=== PATIENT | female | born 1955 | race Caucasian/White ===

== ENCOUNTER 2016-06-10 14:26 | Inpatient (IN) | payer OTHER ==
[~2016-06-10] VITALS: Ht 165.1 cm; Wt 48.5 kg
--- NOTE | 2016-06-10 18:07 | DIAGNOSTIC IMAGING REPORT ---
PROCEDURE: CT ABD/PELVIS WITH CONTRAST INDICATION: Lower abdominal pain. Vomiting. Elevated white blood count (16,100). Reported bilateral oophorectomy. TECHNIQUE: 110 ml of Isovue 300 were injected intravenously and axial images were obtained of the entire abdomen and pelvis with sagittal and coronal reformations. COMPARISON: None. FINDINGS: ABDOMEN: There are moderately dilated small bowel loops in the left lower abdomen / upper pelvis with rotation of the mesentery, and a small amount of mesenteric fluid. Bowel pattern is otherwise normal (appendix is not clearly identified, but no evidence of inflammatory process). There is a 6 mm gallstone near the neck of the gallbladder (incidental finding). Liver, spleen, pancreas, kidneys, and aorta are normal. PELVIS: Status post supracervical hysterectomy. Ovaries are not visualized (consistent with surgical history). IMPRESSION: 1. Moderate to high-grade mid to distal small bowel obstruction with rotation of the mesentery, and small amount of mesenteric fluid. Findings suggest internal hernia (versus adhesions). 2. There is a 6 mm gallstone (incidental finding). 3. Status post partial supracervical hysterectomy and probable oophorectomy. 4. Findings discussed with MED Romero. All CT scans at this facility use dose modulation, iterative reconstruction, and/or weight-based dosing when appropriate to reduce radiation dose to as low as reasonably achievable.
--- NOTE | 2016-06-10 18:30 | ED ORDER SUMMARY ---
..... Patient: NGOC MARTINO OrderSheet [facility] VisitID: [id number] [place] [address] 61y, F Registration Date/Time: 06/10/2016 ORDER SHEET Weight: 47.6 kg (stated) Allergies: No Known Drug Allergy GENERAL ORDERS: CT Abd/Pel w Cont (No) (pending) Urgent (16:41 06/10/2016 HBivens A.R.N.P.) (Ack 16:43 LTapper) (18:53 MCampbell) CBC w Diff Urgent (16:41 06/10/2016 HBivens A.R.N.P.) (Ack 16:43 LTapper) (16:47 LSullivan R.N.) CMP Urgent (16:41 06/10/2016 HBivens A.R.N.P.) (Ack 16:43 LTapper) (16:47 LSullivan R.N.) UA-Culture if indicated Urgent (16:41 06/10/2016 HBivens A.R.N.P.) (Ack 16:43 LTapper) (18:58 LSullivan R.N.) Amylase Urgent (16:41 06/10/2016 HBivens A.R.N.P.) (Ack 16:43 LTapper) (16:47 LSullivan R.N.) Lipase Urgent (16:41 06/10/2016 HBivens A.R.N.P.) (Ack 16:43 LTapper) (16:47 LSullivan R.N.) NG Tube (18:29 06/10/2016 HBivens A.R.N.P.) (19:32 LSullivan R.N.) MEDICATION ORDERS: IV FLUIDS: IV NS with Normal Saline 1 Liter: initial bolus none -, then 1000 mL/hr for X1 (NOW) (15:07 06/10/2016 LSullivan R.N. per protocol) (15:09 LSullivan R.N.) Ondansetron IV 4 mg (NOW) (15:08 06/10/2016 LSullivan R.N. per protocol) (15:09 LSullivan R.N.) Toradol IV 30 mg (NOW) (16:41 06/10/2016 HBivens A.R.N.P.) (16:54 LSullivan R.N.) IV NS : initial bolus 100 mL (1000 mL/hr), then none - (NOW) (18:29 06/10/2016 HBivens A.R.N.P.) (18:59 LSullivan R.N.) Dilaudid IV 1 mg (HIGH ALERT MEDICATION, NOW) (18:56 06/10/2016 HBivens A.R.N.P.) (19:34 DBeyer R.N.) Zofran IV 4 mg (NOW) (18:56 06/10/2016 HBivens A.R.N.P.) (19:33 DBeyer R.N.) Ativan IV 1 mg (NOW) (19:34 06/10/2016 DBeyer R.N. verbal order read back to HBivens A.R.N.P.) (19:34 DBeyer R.N.) ORDER SHEET NOTES: [Electronically signed by Gaviota VeronicaR.N.PBethany (21:12 06/10/2016)] [Electronically signed by Nicolas Miramontes R.N. (06:08 06/11/2016)] [Electronically locked/signed by Nicolas Miramontes R.N. (06:08 06/11/2016)]
--- NOTE | 2016-06-10 18:30 | ED NURSING NOTES ---
Clinical Report - Nurses [facility] [place] [address] 06/10/2016 14:28 Patient: NGOC MARTINO TRIAGE Triage time 14:44. Acuity: LEVEL 3. Chief Complaint: ABDOMINAL PAIN, NAUSEA and VOMITING. Alert. SEPSIS SCREEN: Sepsis Screen. Negative (no infection suspected/documented). --14:51 Laisha Becerra R.N. 14:44 06/10/16. BP: 178/101. HR: 79. RR: 18. O2 saturation: 100%. Temp: 97.8 F. Pain level now: 03/14. --14:51 Laisha Becerra R.N. Weight: 47.6 kg stated. Height/Length: 65 inches Per Patient. BMI: 17.5. --14:44 Laisha Becerra R.N. Medications Levothyroxine Sodium Oral 175 mcg, daily. --14:46 Laisha Becerra R.N. Lisinopril-Hydrochlorothiazide Oral (Tablet 10-12.5 mg) 1 tablet, daily. --14:47 Laisha Becerra R.N. Allergies No Known Drug Allergy. --14:46 Laisha Becerra R.N. History Arrived by private vehicle, and accompanied by family. Primary physician ([facility]). This started last night. Onset. (at about 1:30am). 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 SOCIAL HX: Light tobacco smoker (cigarette)- less than 1/2 a pack per day. Alcohol use; consumes six beers a week. History of drug use: marijuana. SELF HARM ASSESSMENT: A self harm assessment was performed. The patient answered "no" to the question "Do you have thoughts of harming or killing yourself?". FALL RISK ASSESSMENT: Fall risk assessment completed. No fall risk identified. FUNCTIONAL ASSESSMENT: Functional assessment: no impairments noted. ABUSE ASSESSMENT: Abuse assessment: ("YES") The patient was asked "Do you feel safe in your home?". --14:51 Laisha Becerra R.N. PROBLEMS: Syncope. Alcohol Intoxication. Thyroid Disease. Hypertension. --14:48 Laisha Becerra R.N. ADDITIONAL SURGERIES: C section . Thyroid Surgery. Tubal . --14:48 Laisha Becerra R.N. Interventions ID band on patient. To room. --14:51 Laisha Becerra R.N. PHYSICAL ASSESSMENT 14:52 06/10/16. Patient gowned. GENERAL / NEURO / PSYCH: Appears in pain. Decreased awareness. --14:52 Laisha Becerra R.N. NURSING PROGRESS NOTES 14:52 06/10/16. Patient identifiers checked. Bed placed in lowest position. Brakes of bed on. Patient ready for evaluation- chart flagged. --14:52 Laisha Becerra R.N. 15:06/10/2016 Site #1 started via IV in the right antecubital space with an 20g angiocath, with aseptic technique and good blood return; one attempt. Blood drawn: rainbow set. Labeled in the presence of the patient and sent to the lab. --15:09 Laisha Becerra R.N. 15:06/10/2016 Started bag #1 1000 mL IV Fluids IV NS (Saline); at 999 mL/hr via site #1. Allergies verified and confirmed 5 rights. --15:09 Laisha Becerra R.N. 15:06/10/2016 Ondansetron (Ondansetron HCl) IVP 4 mg given over 2 minute(s) via site #1. Confirmed 5 rights. --15:09 Laisha Becerra R.N. 16:06/10/16. Reassessment after fluids administered. She is calm and resting quietly. Overall patient status is the same- she states feels the same. ( back pain). GI / : The patient reports abdominal pain. SKIN: Skin is warm and dry. Skin color within normal limits. --16:04 Violette Gomez R.N. 16:06/10/16. BP: 160/100. HR: 83. RR: 16. O2 saturation: 99%. Pain level now 10/10. --16:04 Violette Gomez R.N. 16:54 06/10/2016 Toradol IVP 30 mg given over 2 minute(s) via site #1. Allergies verified and confirmed 5 rights. --16:54 Laisha Becerra R.N. 16:54 06/10/16. Assisted patient to bathroom (tolerated fair). --16:54 Laisha Becerra R.N. 18:54 06/10/2016 Site #2 started via IV in the right forearm with an 20g angiocath, with aseptic technique and good blood return; one attempt. --18:59 Laisha Becerra R.N. 18:54 06/10/2016 Started bag #2 1000 mL IV Fluids IV NS (Saline); at 100 mL/hr via site #2 via IV pump. Allergies verified and confirmed 5 rights. IV patency established. IV site checked: no pain, redness, or swelling. IV flushed thoroughly pre- and post-medication administration. --18:59 Laisha Becerra R.N. 18:59 06/10/2016 IV Fluids IV NS Discontinued: bag #1 infused. Total amount infused: 1000 mL. IV patency established. IV site checked: no pain, redness, or swelling. IV flushed thoroughly. --18:59 Laisha Becerra R.N. 19:18 06/10/2016 Zofran (Ondansetron HCl) IVP 4 mg given over 2 minute(s) via site #2. Allergies verified and confirmed 5 rights. IV patency established. IV site checked: no pain, redness, or swelling. IV flushed thoroughly pre- and post-medication administration. IVP given by RN. --19:33 Nicolas Miramontes R.N. 19:24 06/10/2016 Dilaudid (HYDROmorphone HCl PF) IVP 1 mg given over 2 minute(s) via site #2. Allergies verified, confirmed 5 rights and sedative warning given to the patient. IV patency established. IV site checked: no pain, redness, or swelling. IV flushed thoroughly pre- and post-medication administration. IVP given by RN. --19:34 Nicolas Miramontes R.N. 19:34 06/10/2016 Ativan (LORazepam) IVP 1 mg given over 2 minute(s) via site #2. Allergies verified, confirmed 5 rights and sedative warning given to the patient. IV patency established. IV site checked: no pain, redness, or swelling. IV flushed thoroughly pre- and post-medication administration. IVP given by RN. --19:34 Nicolas Miramontes R.N. Care transferred and report received. ( report received from laisha). --19:35 Nicolas Miramontes R.N. 19:35 06/10/16. HR: 101. RR: 22. O2 saturation: 93%. --19:35 Nicolas Miramontes R.N. ( Pt in bed call light in reach, ng tube on LIS, 400ml pink fluid out. in no obvious distress). --19:57 Nicolas Miramontes R.N. 19:57 06/10/16. BP: 140/86. HR: 93. RR: 20. O2 saturation: 98%. --19:57 Nicolas Miramontes R.N. DISPOSITION / DISCHARGE ( Pt to be admitted for bowel obstruction.). --20:34 Nicolas Miramontes R.N. 20:33 06/10/16. BP: 139/92. HR: 93. RR: 18. O2 saturation: 94%. Temp: 98.8 F. Pain level now 3/10. --20:34 Nicolas Miramontes R.N. Report was given to a nurse. Report included patient's care, treatment, medications, reviewed medication reconcilliation, and condition (including any recent changes or anticipated changes). All questions were answered. Report was acknowledged. --20:46 Nicolas Miramontes R.N. Departure time: 2106. ( Pt taken upstairs, iv locked, ng held). --21:09 Nicolas Miramontes R.N. 21:06/10/2016 Site #1 removed upon admission. Bandage applied. --21:11 Nicolas Miramontes R.N. 21:11 06/10/2016 Site #[address] upon admission. --21:11 Nicolas Miramontes R.N. Locked/Released at 06/11/2016 6:08 by Nicolas Miramontes R.N.
--- NOTE | 2016-06-10 18:30 | ED CLINICAL REPORT ---
Clinical Report - Physicians/Mid Levels [facility] [address] [place] [address] 06/10/2016 14:28 Patient: NGOC MARTINO Time Seen: 16:33; initial patient contact, initial documentation, patient care assumed. Arrived- By private vehicle. Historian- patient. HISTORY OF PRESENT ILLNESS Chief Complaint: ABDOMINAL PAIN. At its maximum, severity described as severe. When seen in the E.D., severity described as severe. Modifying factors- worsened by movement and deep breaths. Not relieved by anything. It is described as "pain". It is described as located in the right lower quadrant, right pelvis, left lower quadrant and left pelvis and in the lower abdomen. It is described as located in the pelvic area and radiating to the low back. This started last night and is still present. It was abrupt in onset and has been constant. The patient has had nausea. No loss of appetite. She has had severe vomiting. The vomiting has occurred numerous times and has been bilious. No feculent emesis, blood-tinged emesis, coffee-grounds emesis, frankly bloody emesis or unusually dark emesis. No additional abdominal pain. No recent travel. Similar symptoms previously: None. Recent medical care: Not recently seen/assessed. REVIEW OF SYSTEMS No constipation, black stools, hematemesis, difficulty with urination or pain with urination. No urinary frequency, bloody stools, fever, chest pain or difficulty breathing. She has had chills. All systems otherwise negative, except as recorded above. PAST HISTORY See nurses notes. PROBLEMS: Syncope. Alcohol Intoxication. Thyroid Disease. Hypertension. --14:48 Laisha Becerra R.N. ADDITIONAL SURGERIES: C section . Thyroid Surgery. Tubal . --14:48 Laisha Becerra R.N. SOCIAL HISTORY Light tobacco smoker. Regular alcohol use. History of occasional drug use: marijuana. No recent travel. Is a local resident. FAMILY HISTORY Negative. ADDITIONAL NOTES The nursing notes have been reviewed with agreement regarding the chief complaint, HPI, ROS, PMH and patient medications and allergies. PHYSICAL EXAM Vital Signs: 06/10/2016 14:44 BP: 178/101. HR: 79. RR: 18. O2 saturation: 100%. Temp: 97.8 F. Pain level now: 03/14. Have been reviewed as abnormal and appear to be correct. Hypertensive. Heart rate normal. Respiratory rate normal. Temperature normal. Oxygen saturation normal. Appearance: Alert. Oriented X3. No acute distress. Eyes: Pupils equal, round and reactive to light. Eyes normal inspection. Neck: Normal inspection. Neck supple. CVS: Normal heart rate and rhythm. Heart sounds normal. Pulses normal. Respiratory: No respiratory distress. Breath sounds normal. Chest nontender. Abdomen: Soft. Severe tenderness in the periumbilical area, right lower quadrant, suprapubic area, left lower quadrant and lower abdomen with guarding and rebound tenderness present. No Champion's, obturator or psoas sign present. Bowel sounds normal. No organomegaly. No mass. Tenderness present. Back: Normal inspection. Skin: Skin warm and dry. Normal skin color. No rash. Normal skin turgor. Extremities: Extremities exhibit normal ROM. No lower extremity edema. Neuro: Oriented X 3. No motor deficit. No sensory deficit. LABS, X-RAYS, AND EKG Abdominal CT: . IMPRESSION: 1. Moderate to high-grade mid to distal small bowel obstruction with rotation of the mesentery, and small amount of mesenteric fluid. Findings suggest internal hernia (versus adhesions). 2. There is a 6 mm gallstone (incidental finding). 3. Status post partial supracervical hysterectomy and probable oophorectomy. 4. Findings discussed with MED Romero. All CT scans at this facility use dose modulation, iterative reconstruction, and/or weight-based dosing when appropriate to reduce radiation dose to as low as reasonably achievable. Electronically Final signed by:Andrea Hernandez MD 06/10/2016 6:03:37 PM Technologist: JOSE. Laboratory Tests: UA-Culture if indicated: (LISSETTE: 06/10/2016 16:58) ( MsgRcvd 06/10/2016 17:46) Final results Test Result Flag Units (Reference) URINE COLOR YELLOW URINE APPEARANCE CLEAR URINE GLUCOSE NEGATIVE (NEGATIVE) URINE BILIRUBIN NEGATIVE (NEGATIVE) URINE KETONE 3+ (NEGATIVE) URINE SPECIFIC GRAVITY >= 1.030 (1.010-1.030) URINE PH 5.5 (5.0-8.0) URINE PROTEIN 1+ (NEGATIVE) URINE UROBILINOGEN 0.2 EU/dL (0.2-1.0) URINE NITRITE NEGATIVE (NEGATIVE) URINE BLOOD 3+ (NEGATIVE) URINE LEUK ESTERASE NEGATIVE (NEGATIVE) URINE RBC 5-10 rbc/hpf (0-1) URINE WBC 0-1 wbc/hpf (0-1) URINE EPITHELIAL CELLS 1-3 EPI/hpf (0-5) URINE BACTERIA NONE SEEN (NONE SEEN) URINE COMMENT CULT NOT INDICATED 1+ AMORPHOUS1+ MUCUSURINE CULTURES ARE SET-UP BASED ON THE FOLLOWING CRITERIA:POSITIVE NITRITEPOSITIVE LEUKOCYTE ESTERASEGREATER THAN 10 WHITE BLOOD CELLSMODERATE (2+) OR GREATER BACTERIA CBC w Diff: (LISSETTE: 06/10/2016 15:00) ( [facility] 06/10/2016 16:52) Final results Test Result Flag Units (Reference) WHITE BLOOD COUNT 16.1 H K/uL (4.5-11.5) RED BLOOD COUNT 5.42 H M/uL (4.00-5.20) HEMOGLOBIN 16.3 H gm/dL (12.0-16.0) HEMATOCRIT 49.7 H % (36.0-46.0) MEAN CELL VOLUME 92 fL (80-100) MEAN CORPUSCULAR HGB 30 pg (26-34) MEAN CORPUSCULAR HGB CONC 33 g/dL (31-37) RED CELL DISTRIBUTION WIDTH 15.6 H % (11.6-14.8) PLATELET COUNT 252 K/uL (150-400) NEUTROPHIL % 91.6 H % (50-75) LYMPH % 4.1 L % (25-40) MONO % 4.2 % (3-14) EOSINOPHIL % 0 % (0-4) BASOPHIL % 0.1 % (0-2) CMP: (LISSETTE: 06/10/2016 15:00) ( [facility] [place] 06/10/2016 17:05) Final results Test Result Flag Units (Reference) GLUCOSE 125 H mg/dL (70-110) BUN 14 mg/dL (7-18) CREATININE 0.7 mg/dL (0.6-1.3) Estimated GFR >60 mL/min Estimated GFR- >60 mL/min Note: Persistent reduction over 3 months in eGFR<60 mL/min/1.73 m2 defines CKD. Patients with eGFR values>=60 mL/min/1.73 m2 may also have CKD if evidence ofpersistent proteinuria. Additional information may be foundat www.kidney.org. SODIUM 137 mmol/L (136-145) POTASSIUM 4.0 mmol/L (3.5-5.1) CHLORIDE 102 mmol/L (98-107) CARBON DIOXIDE 27 mmol/L (21-32) CALCIUM 9.9 mg/dL (8.5-10.1) TOTAL PROTEIN 8.8 H g/dL (6.4-8.2) ALBUMIN 4.0 g/dL (3.3-5.0) BILIRUBIN, TOTAL 0.7 mg/dL (0.0-1.0) ALKALINE PHOSPHATASE 85 U/L (46-116) AST (SGOT) 140 H U/L (15-37) ALT (SGPT) 253 H U/L (12-78) LIPASE 100 U/L (73-393) AMYLASE 51 U/L (25-115) . PROGRESS AND PROCEDURES Course of Care: 1909. pt updated with tx plan and all qtns answered. Discussed case with on-call health care provider, (call returned 18:29 Dr Henriquez). Reviewed test results and need for additional work-up. Agreed upon treatment plan and decision to admit. Health care provider will see patient in hospital. Patient counseled in person regarding the patient's stable condition, test results, diagnosis and need for additional testing, admission and surgery. 1809. Differential Diagnosis: I considered gastritis, gastroenteritis, peptic ulcer disease, gastroesophageal reflux disease, acute appendicitis, mesenteric lymphadenitis, diverticulitis, colon cancer, ulcerative colitis, Crohn's disease, obstipation, spontaneous bacterial peritonitis, hernia, urinary tract infection, and viral syndrome as a possible cause of abdominal pain in this patient. This is a partial list of diagnoses considered. Above considerations are based on history, physical exam, laboratory data and other information. Differential diagnosis was discussed with patient. Disposition: Admitted to Acute Care. 18:30. Condition: good and stable. CLINICAL IMPRESSION Acute left lower quadrant abdominal pain. Intractable vomiting with nausea. No dehydration or volume depletion. Not bilious. Small bowel obstruction associated with intestinal bands / adhesions and left hernia. No volvulus, fecal impaction, intussusception or gallstone ileus. INSTRUCTIONS Follow-up: Screening today revealed the patient's blood pressure to be in the hypertensive range. The patient should follow up with a primary care provider for blood pressure management. (Electronically signed by Gaviota Veronica A.R.N.P. 06/10/2016 21:12)
--- NOTE | 2016-06-10 18:30 | ED ORDER SUMMARY ---
..... Patient: NGOC MARTINO OrderSheet VisitID: [id number] [place] [address] 61y, F Registration Date/Time: 06/10/2016 ORDER SHEET Weight: 47.6 kg (stated) Allergies: No Known Drug Allergy GENERAL ORDERS: CT Abd/Pel w Cont (No) (pending) Urgent (16:41 06/10/2016 HBivens A.R.N.P.) (Ack 16:43 LTapper) (18:53 MCampbell) CBC w Diff Urgent (16:41 06/10/2016 HBivens A.R.N.P.) (Ack 16:43 LTapper) (16:47 LSullivan R.N.) CMP Urgent (16:41 06/10/2016 HBivens A.R.N.P.) (Ack 16:43 LTapper) (16:47 LSullivan R.N.) UA-Culture if indicated Urgent (16:41 06/10/2016 HBivens A.R.N.P.) (Ack 16:43 LTapper) (18:58 LSullivan R.N.) Amylase Urgent (16:41 06/10/2016 HBivens A.R.N.P.) (Ack 16:43 LTapper) (16:47 LSullivan R.N.) Lipase Urgent (16:41 06/10/2016 HBivens A.R.N.P.) (Ack 16:43 LTapper) (16:47 LSullivan R.N.) NG Tube (18:29 06/10/2016 HBivens A.R.N.P.) (19:32 LSullivan R.N.) MEDICATION ORDERS: IV FLUIDS: IV NS with Normal Saline 1 Liter: initial bolus none -, then 1000 mL/hr for X1 (NOW) (15:07 06/10/2016 LSullivan R.N. per protocol) (15:09 LSullivan R.N.) Ondansetron IV 4 mg (NOW) (15:08 06/10/2016 LSullivan R.N. per protocol) (15:09 LSullivan R.N.) Toradol IV 30 mg (NOW) (16:41 06/10/2016 HBivens A.R.N.P.) (16:54 LSullivan R.N.) IV NS : initial bolus 100 mL (1000 mL/hr), then none - (NOW) (18:29 06/10/2016 HBivens A.R.N.P.) (18:59 LSullivan R.N.) Dilaudid IV 1 mg (HIGH ALERT MEDICATION, NOW) (18:56 06/10/2016 HBivens A.R.N.P.) (19:34 DBeyer R.N.) Zofran IV 4 mg (NOW) (18:56 06/10/2016 HBivens A.R.N.P.) (19:33 DBeyer R.N.) Ativan IV 1 mg (NOW) (19:34 06/10/2016 DBeyer R.N. verbal order read back to HBivens A.R.N.P.) (19:34 DBeyer R.N.) ORDER SHEET NOTES: [Electronically signed by Gaviota VeronicaR.N.PBethany (21:12 06/10/2016)] [Electronically signed by Nicolas Miramontes R.N. (06:08 06/11/2016)] [Electronically locked/signed by Nicolas Miramontes R.N. (06:08 06/11/2016)]
[2016-06-10 21:29] VITALS: BP 136/85
[2016-06-11] VITALS (11 sets, daily range): BP systolic 98–127; BP diastolic 66–81
[2016-06-11] MEDS ORDERED: FOSAMAX70 MG PO (04:48)
[2016-06-11] MEDS ORDERED: LISINOPRIL/HYDR1 TA1 PO (04:50)
--- NOTE | 2016-06-11 06:09 | ED MAR SUMMARY ---
..... Medication Administration Record [facility] [address] [place] [address] Patient: NGOC MARTINO Visit ID: [id number] 61y, F Weight: 47.6 kg Height/Length: 65 in BMI: 17.5 ALLERGIES: No Known Drug Allergy Start 15:09 06/10/2016 Laisha Becerra R.N., Stop 18:59 06/10/2016 Laisha Becerra R.N. Medication Administered: IV NS (SALINE), Dose: IV Fluids, Rate: 999 mL/hr, Dispensed: 1000 mL bag, Site: #1 right AC. Medication Ordered: IV NS with Normal Saline 1 Liter: initial bolus none -, then 1000 mL/hr for X1 (NOW). Given 15:09 06/10/2016 Laisha Becerra R.N. Medication Administered: ONDANSETRON [IVP] (ONDANSETRON HCL), Dose: 4 mg IVP over 2 minute(s), Site: #1 right AC. Medication Ordered: Ondansetron IV 4 mg (NOW). Given 16:54 06/10/2016 Laisha Becerra R.N. Medication Administered: TORADOL [IVP], Dose: 30 mg IVP over 2 minute(s), Site: #1 right AC. Medication Ordered: Toradol IV 30 mg (NOW). Start 18:54 06/10/2016 Laisha Becerra R.N. Medication Administered: IV NS (SALINE), Dose: IV Fluids, Rate: 100 mL/hr, Dispensed: 1000 mL bag, Site: #2 right forearm. Medication Ordered: IV NS : initial bolus 100 mL (1000 mL/hr), then none - (NOW). Given 19:18 06/10/2016 Nicolas Miramontes R.N. Medication Administered: ZOFRAN [IVP] (ONDANSETRON HCL), Dose: 4 mg IVP over 2 minute(s), Site: #2 right forearm. Medication Ordered: Zofran IV 4 mg (NOW). Given 19:24 06/10/2016 Nicolas Miramontes R.N. Medication Administered: DILAUDID [IVP] (HYDROMORPHONE HCL PF), Dose: 1 mg IVP over 2 minute(s), Site: #2 right forearm. Medication Ordered: Dilaudid IV 1 mg (HIGH ALERT MEDICATION, NOW). Given 19:34 06/10/2016 Nicolas Miramontes R.N. Medication Administered: ATIVAN [IVP] (LORAZEPAM), Dose: 1 mg IVP over 2 minute(s), Site: #2 right forearm. Medication Ordered: Ativan IV 1 mg (NOW).
--- NOTE | 2016-06-11 06:09 | ED MAR SUMMARY ---
..... Medication Administration Record [facility] [address] [place] [address] Patient: NGOC MARTINO Visit ID: [id number] 61y, F Weight: 47.6 kg Height/Length: 65 in BMI: 17.5 ALLERGIES: No Known Drug Allergy Start 15:09 06/10/2016 Laisha Becerra R.N., Stop 18:59 06/10/2016 Laisha Becerra R.N. Medication Administered: IV NS (SALINE), Dose: IV Fluids, Rate: 999 mL/hr, Dispensed: 1000 mL bag, Site: #1 right AC. Medication Ordered: IV NS with Normal Saline 1 Liter: initial bolus none -, then 1000 mL/hr for X1 (NOW). Given 15:09 06/10/2016 Laisha Becerra R.N. Medication Administered: ONDANSETRON [IVP] (ONDANSETRON HCL), Dose: 4 mg IVP over 2 minute(s), Site: #1 right AC. Medication Ordered: Ondansetron IV 4 mg (NOW). Given 16:54 06/10/2016 Laisha Becerra R.N. Medication Administered: TORADOL [IVP], Dose: 30 mg IVP over 2 minute(s), Site: #1 right AC. Medication Ordered: Toradol IV 30 mg (NOW). Start 18:54 06/10/2016 Laisha Becerra R.N. Medication Administered: IV NS (SALINE), Dose: IV Fluids, Rate: 100 mL/hr, Dispensed: 1000 mL bag, Site: #2 right forearm. Medication Ordered: IV NS : initial bolus 100 mL (1000 mL/hr), then none - (NOW). Given 19:18 06/10/2016 Nicolas Miramontes R.N. Medication Administered: ZOFRAN [IVP] (ONDANSETRON HCL), Dose: 4 mg IVP over 2 minute(s), Site: #2 right forearm. Medication Ordered: Zofran IV 4 mg (NOW). Given 19:24 06/10/2016 Nicolas Miramontes R.N. Medication Administered: DILAUDID [IVP] (HYDROMORPHONE HCL PF), Dose: 1 mg IVP over 2 minute(s), Site: #2 right forearm. Medication Ordered: Dilaudid IV 1 mg (HIGH ALERT MEDICATION, NOW). Given 19:34 06/10/2016 Nicolas Miramontes R.N. Medication Administered: ATIVAN [IVP] (LORAZEPAM), Dose: 1 mg IVP over 2 minute(s), Site: #2 right forearm. Medication Ordered: Ativan IV 1 mg (NOW).
--- NOTE | 2016-06-11 06:09 | ED DISCHARGE INSTRUCTIONS ---
Patient: NGOC MARTINO General Instructions [facility] VisitID: [id number] [address] [place] [address] 61y, F Registration Date/Time: 06/10/2016 Acute left lower quadrant abdominal pain. Intractable vomiting with nausea. No dehydration or volume depletion. Not bilious. Small bowel obstruction associated with intestinal bands / adhesions and left hernia. No volvulus, fecal impaction, intussusception or gallstone ileus. INSTRUCTIONS Follow-up: Screening today revealed the patient's blood pressure to be in the hypertensive range. The patient should follow up with a primary care provider for blood pressure management. (Electronically signed by Gaviota Veronica A.R.N.P. 06/10/2016 21:12)
--- NOTE | 2016-06-11 06:09 | ED MED RECONCILIATION SUMMARY ---
Patient: NGOC MARTINO Medication Reconciliation Report [facility] VisitID: [id number] [address] [place] [address] 61y, F Registration Date/Time: 06/10/2016 Weight: 47.6 kg Height/Length: 65 in. BMI: 17.5 ALLERGIES: No Known Drug Allergy The patient's Home Medications are listed below: THE FOLLOWING MEDICATIONS NEED TO BE RECONCILED: Levothyroxine Sodium Oral 175 mcg, daily Lisinopril-Hydrochlorothiazide Oral (10-12.5 mg) 1 tablet, daily The source(s) of the original Home Medication information: Not obtained. The following Medications were given to the patient in the Emergency Department: IV NS IV Fluids bolus 0, then 999 mL/hr, administered: 06/10/2016 3:09:00 PM Ondansetron [IVP] IVP 4 mg, administered: 06/10/2016 3:09:00 PM Toradol [IVP] IVP 30 mg, administered: 06/10/2016 4:54:00 PM IV NS IV Fluids bolus 0, then 100 mL/hr, administered: 06/10/2016 6:54:00 PM Zofran [IVP] IVP 4 mg, administered: 06/10/2016 7:18:00 PM Dilaudid [IVP] IVP 1 mg, administered: 06/10/2016 7:24:00 PM Ativan [IVP] IVP 1 mg, administered: 06/10/2016 7:34:00 PM The following Medications were prescribed to the patient: None.
--- NOTE | 2016-06-11 06:09 | ED DISCHARGE INSTRUCTIONS ---
Patient: NGOC MARTINO General Instructions [facility] VisitID: [id number] [address] [place] [address] 61y, F Registration Date/Time: 06/10/2016 Acute left lower quadrant abdominal pain. Intractable vomiting with nausea. No dehydration or volume depletion. Not bilious. Small bowel obstruction associated with intestinal bands / adhesions and left hernia. No volvulus, fecal impaction, intussusception or gallstone ileus. INSTRUCTIONS Follow-up: Screening today revealed the patient's blood pressure to be in the hypertensive range. The patient should follow up with a primary care provider for blood pressure management. (Electronically signed by Gaviota Veronica A.R.N.P. 06/10/2016 21:12)
--- NOTE | 2016-06-11 06:09 | ED MED RECONCILIATION SUMMARY ---
Patient: NGOC MARTINO Medication Reconciliation Report [facility] VisitID: [id number] [address] [place] [address] 61y, F Registration Date/Time: 06/10/2016 Weight: 47.6 kg Height/Length: 65 in. BMI: 17.5 ALLERGIES: No Known Drug Allergy The patient's Home Medications are listed below: THE FOLLOWING MEDICATIONS NEED TO BE RECONCILED: Levothyroxine Sodium Oral 175 mcg, daily Lisinopril-Hydrochlorothiazide Oral (10-12.5 mg) 1 tablet, daily The source(s) of the original Home Medication information: Not obtained. The following Medications were given to the patient in the Emergency Department: IV NS IV Fluids bolus 0, then 999 mL/hr, administered: 06/10/2016 3:09:00 PM Ondansetron [IVP] IVP 4 mg, administered: 06/10/2016 3:09:00 PM Toradol [IVP] IVP 30 mg, administered: 06/10/2016 4:54:00 PM IV NS IV Fluids bolus 0, then 100 mL/hr, administered: 06/10/2016 6:54:00 PM Zofran [IVP] IVP 4 mg, administered: 06/10/2016 7:18:00 PM Dilaudid [IVP] IVP 1 mg, administered: 06/10/2016 7:24:00 PM Ativan [IVP] IVP 1 mg, administered: 06/10/2016 7:34:00 PM The following Medications were prescribed to the patient: None.
--- NOTE | 2016-06-11 14:55 | CONSULTATION REPORT ---
DATE OF CONSULTATION: 06/11/2016 CHIEF COMPLAINT: 1. Abdominal pain HISTORY OF PRESENT ILLNESS: The patient is a 61-year-old woman who presented to the emergency department yesterday evening with complaints of 24-hour history of abdominal pain associated with nausea and vomiting. The pain is described initially in the right lower quadrant, but is across the lower abdomen at this point involving both lower quadrants. It is also radiates down in the pelvis and seems to go through to her lower back. The patient waited to see if this got better, but because of ongoing vomiting, came to the emergency room. There was no blood or coffee-ground emesis. There is no previous episodes of this type of presentation. MEDICAL/SURGICAL HISTORY: Past medical history of hypothyroidism, hypertension, postural syncope and hypotension, previous ectopic pregnancies. Past Surgical History: The patient had tubals on 3 occasions, but no intrauterine pregnancies. The patient had an incidental appendectomy with one of these surgeries by her description. Additionally, CT scan shows a supracervical hysterectomy and the patient was unaware of this. 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 MEDICATIONS: 1. Synthroid 0.175 mg p.o. daily. 2. Lisinopril/hydrochlorothiazide 10/12.5 mg p.o. daily. ALLERGIES: 1. NONE TO MEDICATIONS. SOCIAL HISTORY: The patient is . She is disabled from childhood trauma. She smokes about 1/2 pack per day. She takes less than 1 alcoholic beverage per day. She has a friend with her today, who is not her significant other. She reports no living children. FAMILY HISTORY: The patient's mother currently has some type of cancer, but the patient does not know the type. She is unaware of any additional family history. REVIEW OF SYSTEMS: A multipoint review of systems was obtained last night through the emergency department. She has no other GI symptoms other than those mentioned above, and nothing preceding this current acute episode. She has no problems with her urinary system, dysuria or urinary retention. She has no shortness of breath. She reports no known history of COPD. She has not had productive cough or hemoptysis. The patient does report she has some chills at the onset of this illness. PHYSICAL EXAMINATION: GENERAL: The patient is alert and cooperative and provides appropriate history. VITAL SIGNS: Her most recent vital signs: Temperature is 99.7, pulse of 104, respirations 18, blood pressure 123/78. HEENT: Ears and nose demonstrate no gross external lesions. Eyes are equal. She is anicteric. NECK: Without palpable masses or thyromegaly. There is a thyroidectomy scar. HEART: Regular, without murmur or gallop. ABDOMEN: Exam tenderness in the lower abdomen with involuntary guarding in both lower quadrants. There is some increased tympany in the lower abdomen. The abdomen is otherwise not particularly tight or tightly distended. There is a laparoscopy scar in the upper aspect of her umbilicus and a very tiny epiplocele which is easily reducible. Bowel sounds are absent. The lower abdomen demonstrates guarding. EXTREMITIES: Appear symmetric. She moves without restriction. LAB/IMAGING: Demonstrate an initial white blood count of 16.1, hemoglobin and hematocrit of 16 and 49. Electrolytes are normal. Urinalysis is negative, 5-10 red cells, negative leukocyte esterase. CT scan was reviewed and this demonstrates a owskisal-de-wbdt-grade distal small -bowel obstruction with rotation of the mesentery and a small amount of mesenteric fluid. There is an incidental gallstone and the patient appears to have had a previous supracervical hysterectomy and oophorectomy. IMPRESSION: 1. Small bowel obstruction, most likely adhesive PLAN: I recommended the patient undergo surgery at this point. She has been treated now with nasogastric decompression and IV fluids, but continues to have significant lower abdominal pain. I recommended surgery because of the possibility of bowel compromise. This patient is also a first time small bowel obstruction, most likely on an adhesive basis and would be best served by surgery. I discussed with her and her male friend the planned operation. I talked to them about the possible approaches. In this situation when she was not tightly distended, I think I can try placing a laparoscope first to see if we can determine the cause of obstruction and relieve her of this. If we are unable to get visualization due to excessive bowel swelling or excessive adhesions, then we will convert to an open laparotomy. I reported to them that the chances of going to open are at least 50%. Nonetheless, we have had some successful laparoscopic approaches and therefore this could spare her the larger incision and the potential for creating more adhesions. I explained to the patient and her friend the risks of the surgery including risk of infection, bleeding, scars, pain, damage to local structures, particularly the small bowel with the possibility of abscess, peritonitis or small bowel fistula. I explained the distinct possibility of future recurrent adhesions and recurrent episodes of small-bowel obstruction. They appeared to understand these and other considerations and would like to proceed with surgery as described to them.
--- NOTE | 2016-06-11 15:07 | OPERATIVE REPORT ---
DATE OF SURGERY: 06/11/2016 SURGEON: Edwardo Kenyon MD PREOPERATIVE DIAGNOSIS: 1. Small-bowel obstruction POSTOPERATIVE DIAGNOSIS: 1. Strangulation obstruction of small bowel secondary to adhesions PROCEDURE PERFORMED: 1. Laparoscopic adhesiolysis and laparoscopic-assisted small bowel resection. ANESTHESIA: General. INDICATIONS: The patient is a 61-year-old woman presenting with abdominal pain and evidence of small-bowel obstruction. SURGICAL TECHNIQUE: The patient was taken to the operating room, where a general anesthetic was administered and the patient prepped and draped in the usual sterile fashion. A Duran catheter was inserted. A nasogastric tube was already in place. The patient received IV antibiotics. A local anesthetic of 0.5% Marcaine with epinephrine was used at each incision site. An infraumbilical incision was made and a Veress needle used to insufflate. A 10 mm trocar was passed and visualization was obtained. The patient had extensive adhesions down the midline in the lower abdomen and around in the pelvis. Additional trocars were placed to allow instrumentation and the adhesions were gradually taken down using a combination of cold scissors and the Thunderbeat. The omental adhesions were first taken down, which were down the anterior abdomen and also stuck down in the pelvis. These were freed up and eventually taking down additional small bowel interloop adhesions revealed a purple loop of bowel down in the pelvis that was clearly compromised. Careful dissection was done to free this all up out of the pelvis and pull it up and this revealed that a loop of small bowel had stuck down creating a tunnel-like area through which this particular compromised loop had herniated. Once this was opened up, the small bowel was observed and it was clearly nonviable at this point and did not pink up after release. The bowel was now all freed up. Therefore, the umbilical trocar site was converted into a small incision enough to allow the bowel to be delivered up onto the surface. This area was resected using a WILNER stapling device at both ends at the margins of the viable bowel. A functional end-to-end anastomosis was carried out using an additional WILNER load and a TA55 load. The mesenteric defect was minimal and did not require closure. The small bowel anastomosis was palpated and found to be patent. It was returned to the abdominal cavity. The abdominal fascia was closed using running #1 PDS suture. The umbilical wound was closed with interrupted subcuticular 4-0 Vicryl suture and Steri-Strips and the only remaining 10 mm site was closed with a single interrupted subcuticular 4-0 Vicryl suture and Steri-Strips. Dressings were applied and the patient left the operating room in good condition. No intraoperative complications were encountered.
[2016-06-12 02:28] VITALS: BP 103/72
[2016-06-12 07:21] VITALS: BP 112/77
[2016-06-12 10:19] VITALS: BP 103/70
[2016-06-12 14:35] VITALS: BP 120/86
[2016-06-12 18:05] VITALS: BP 124/84
[2016-06-13] VITALS (7 sets, daily range): BP systolic 116–145; BP diastolic 77–97
[2016-06-14 02:08] VITALS: BP 137/89
[2016-06-14 07:00] VITALS: BP 148/89
[2016-06-14 10:48] VITALS: BP 143/75
[2016-06-14 14:33] VITALS: BP 149/86
[2016-06-14 19:06] VITALS: BP 142/82
[2016-06-14 22:53] VITALS: BP 141/88
[2016-06-15 02:27] VITALS: BP 162/112
[2016-06-15 06:50] VITALS: BP 145/101
[2016-06-15 10:48] VITALS: BP 155/97
[2016-06-15 14:25] VITALS: BP 152/90
[2016-06-15 18:30] VITALS: BP 147/97
[2016-06-15 23:23] VITALS: BP 150/98
[2016-06-16 02:52] VITALS: BP 145/97
[2016-06-16 06:15] VITALS: BP 139/87
--- NOTE | 2016-06-16 07:46 | Provider's Discharge Care Plan ---
Problem, Goal, Plan Problem List 1. SBO (small bowel obstruction)
--- NOTE | 2016-06-16 07:46 | Provider's Discharge Care Plan ---
Problem, Goal, Plan Problem List 1. SBO (small bowel obstruction)
--- NOTE | 2016-06-27 22:38 | DISCHARGE SUMMARY ---
ADMIT DATE: 06/10/2016 DISCHARGE DATE: 06/16/2016 DISCHARGE DIAGNOSIS: 1. Small bowel strangulation obstruction secondary to adhesions BRIEF HISTORY: The patient is a 61-year-old woman admitted to the hospital for evidence of small bowel obstruction and abdominal pain. The patient was found to have a high-grade small bowel obstruction, but additionally had significant tenderness with involuntary guarding and therefore was taken to surgery promptly. HOSPITAL COURSE: She underwent laparoscopic exploration where adhesions were taken down and the bowel freed up. The patient had strangulation obstruction and 1 loop of bowel involved in this internal herniation would not revascularize. She had a small counterincision and a laparoscopic-assisted small bowel resection was carried out. Postoperatively, the patient had gradual resumption of bowel function and her nasogastric tube was removed and her oral alimentation gradually increased over several days. She appeared to have slow progress; therefore, her narcotics were discontinued, ambulation was increased and a Fleet enema given. By postoperative day #5, she was passing gas and stool, tolerating oral full liquids with active bowel sounds and no evidence of abdominal distention. She was discharged home at that point. DISCHARGE INSTRUCTIONS/MEDICATIONS: Follow up in surgical clinic in about 1 week.
--- NOTE | 2016-06-30 19:17 | DISCHARGE SUMMARY ---
ADMIT DATE: 06/10/2016 DISCHARGE DATE: 06/16/2016 DISCHARGE DIAGNOSIS: 1. Adhesive small-bowel obstruction HOSPITAL COURSE: The patient is a 61-year-old woman who underwent laparoscopic treatment of a small-bowel obstruction on 06/11/2016. She was found to have a strangulation, and the enterolysis was carried out laparoscopically. Following surgery, she had gradual resumption of bowel function. By postoperative day #5, she was passing stool and gas and tolerating a regular diet. DISCHARGE INSTRUCTIONS/MEDICATIONS: The patient will be followed up in the clinic as ordered.
== END 2016-06-16 10:40 | disposition home or self-care (01) | DRG 221 ==
LOC: ED SRH 14:26 → TRANS SRH 19:06 → ACUTE2 SRH 21:15
PROVIDERS: Surgery; ADMIT Emergency Medicine
PROC: 0DB84ZZ Excision of Small Intestine, Percutaneous Endoscopic Approach (ICD-10-PCS; principal; 2016-06-11 12:00)
PROC: 0DN84ZZ Release Small Intestine, Percutaneous Endoscopic Approach (ICD-10-PCS; principal; 2016-06-11 12:00)
DX: K56.5 Intestinal adhesions [bands] with obstruction (postinfection) (principal); K55.021 Focal (segmental) acute infarction of small intestine; I10 Essential (primary) hypertension; E03.9 Hypothyroidism, unspecified; F17.210 Nicotine dependence, cigarettes, uncomplicated
CPT/HCPCS: 29257; 50002; 60001; 70002; 80102; 80212; 80248; 81447; 81636; 81638; 82530; 82794; 82897; 83432; 83526; 83580; 83587; 83919; 83982; 84038; 84341; 84532; 85420; 85447; 90001; 90004; 90074; 90100; 90155; 91004; 92235; 92530; 95059

== ENCOUNTER 2016-06-20 17:07 | Inpatient (IN) | payer OTHER ==
[~2016-06-20] VITALS: Ht 165.1 cm; Wt 51.2 kg
[~2016-06-20 17:07] MED LIST: FOSAMAX70 MG PO; LISINOPRIL/HYDR1 TA1 PO
[2016-06-20 17:25] VITALS: BP 127/75
--- NOTE | 2016-06-20 20:20 | CONSULTATION REPORT ---
DATE OF CONSULTATION: 06/20/2016 CHIEF COMPLAINT: 1. Abdominal spasms and syncope HISTORY OF PRESENT ILLNESS: The patient is a 61-year-old woman who came to the clinic today because of abdominal pains. She had an episode of syncope yesterday where she fell down and since then has been having right-sided abdominal spasms that are quite severe. Her also reports that she has been having weight loss over the last 2 days. The patient underwent a diagnostic laparoscopy on 06/11/2016 with takedown of adhesions and resection of the small bowel for strangulation, obstruction. She recovered and was sent home eating normally and off of pain medication. Since the fall yesterday she has been having increasing pain and intolerance, and has not felt well. She has not thrown up and she has eaten regular food including hamburger, liquids and other things. She has been passing bowel movements and gas. The patient and her report that in 10/2015 she had a fainting episode. She also was on blood pressure medications including lisinopril and HCTZ. She was advised at one point to increase her dose, but did not do so and despite this, had a syncopal episode. Her blood pressure in the clinic today was 110/70. MEDICAL/SURGICAL HISTORY: refer to recent history and physical This is an interim note. ALLERGIES: 1. none PHYSICAL EXAMINATION: GENERAL: Today, the patient is alert and appropriately responsive, but appears to be in distress. She keeps having spasms in her right shoulder muscles, which respond to massage. She also has right-sided abdominal spasms. ABDOMEN: Reveals that she is nondistended, with active bowel sounds. There is some vague discomfort toward the right side, but no actual localized guarding. The wounds are visualized under a series of Band-Aids and they do not demonstrate erythema, drainage or purulence. IMPRESSION: 1. Abdominal spasms of unclear etiology. 2. Recent small-bowel obstruction with bowel resection. PLAN: I recommended the patient be admitted for observation since she and her feel very unconfident going home and are concerned about the situation. I would like to get some laboratory tests and a CT scan tonight and put her on IV fluids. If we do not see anything particularly alarming then perhaps we can advance her diet and I may consider a hospitalist consultation at some point if we cannot determine the exact etiology of this. There remains the possibility that this is a musculoskeletal injury due to the fall and that some of these problems may be related to that.
--- NOTE | 2016-06-20 20:48 | DIAGNOSTIC IMAGING REPORT ---
PROCEDURE: CT ABD/PELVIS WITH CONTRAST INDICATION: Status post fall. 1 week status post small bowel resection. Right abdominal pain. Reported history of bilateral oophorectomy. TECHNIQUE: 65 ml of Isovue 300 (one half-dose) were injected intravenously and axial images were obtained of the entire abdomen and pelvis with sagittal and coronal reformations. COMPARISON: Comparison made to CT abdomen and pelvis on 06/10/2016. FINDINGS: ABDOMEN: There is a small amount of free fluid surrounding the dome and lateral aspect of the liver. Liver is otherwise normal There is a 6 mm calcified gallstone (incidental finding). Gallbladder, liver, spleen, pancreas, kidneys (4 cm left renal cyst) and aorta are normal. Bowel pattern is normal. PELVIS: Postoperative change with resection of dilated small bowel segment, and surgical mesh in the right pelvis. There is a 10 cm x 6 cm x 2.5 cm proteinaceous fluid and air collection in the right pelvis, near the surgical site. There is also an 8 cm x 3 cm x 3 cm fluid collection in the posterior cul-de-sac. Uterus appears normal. There is a 3 cm cyst in the right adnexal region, most likely representing an ovarian cyst. Left ovary is not clearly identified (consistent with clinical history of oophorectomy). IMPRESSION: 1. Interim resection of small bowel segment with postoperative changes in the right pelvis. 2. There is a 10 x 6 x 2.5 cm proteinaceous air and fluid collection in right ventral pelvis, near surgical site. Findings suggest pelvic abscess or evolving hematoma. 3. There is an additional 8 x 3 x 3 cm fluid collection in the posterior cul-de-sac (may communicate with the ventral fluid collection). 4. There is a 3 cm right pelvic cyst suspicious for ovarian cyst (although reported history of bilateral oophorectomy). 5. Small amount of abdominal ascites. 6. Findings discussed with Dr. Edwardo Kenyon. All CT scans at this facility use dose modulation, iterative reconstruction, and/or weight-based dosing when appropriate to reduce radiation dose to as low as reasonably achievable.
[2016-06-20] MEDS ORDERED: VITAMIN D1000 UNIT PO (21:34)
[2016-06-20] MEDS ORDERED: LEVOTHYROXINE75 MCG PO (21:35)
[2016-06-20 22:30] VITALS: BP 97/59
[2016-06-21 02:54] VITALS: BP 109/67
[2016-06-21 07:54] VITALS: BP 95/55
[2016-06-21 11:14] VITALS: BP 103/62
[2016-06-21 16:55] VITALS: BP 107/63
[2016-06-21 22:34] VITALS: BP 104/58
[2016-06-22 02:49] VITALS: BP 93/52
[2016-06-22 06:37] VITALS: BP 94/56
[2016-06-22 10:36] VITALS: BP 98/57
--- NOTE | 2016-06-22 11:47 | DIAGNOSTIC IMAGING REPORT ---
PROCEDURE: CT RETRO/PERITONEAL DRAINAGE INDICATION: Pelvic fluid collection or abscess. TECHNIQUE: Informed consent was obtained and the patient was advised of the usual risk and complications, including infection, bleeding, viscus perforation, and allergy. COMPARISON: Comparison is made to CT abdomen and pelvis on 06/20/2016. FINDINGS: Left lateral decubitus position. Following sterile preparation and 1% lidocaine local anesthetic, CT guidance was utilized to place a 16-gauge angiocatheter into the right posterior buttocks and directed into a pelvic cul- de-sac fluid collection. This yielded hemorrhagic fluid (samples sent for Gram stain culture). Utilizing an 0.038 guidewire and dilators (8-Nicaraguan, 10-Nicaraguan), a 10-Nicaraguan cope loop catheter was inserted and directed into the cavity. This yielded approximate 100 ml of hemorrhagic fluid. The catheter was irrigated with 300 ml normal saline, secured to the patient's side, and placed to Jonathon-Tracey bulb suction. The patient tolerated procedure reasonably well and there are no complications. IMPRESSION: 1. Successful CT-guided partial drainage of pelvic fluid collection with placement of 10-Nicaraguan drainage tube (right posterior buttocks), yielding 100 ml of hemorrhagic fluid. Findings are compatible with an evolving hematoma. 2. Findings discussed with Dr. Kenyon.
--- NOTE | 2016-06-22 11:47 | DIAGNOSTIC IMAGING REPORT ---
PROCEDURE: CT RETRO/PERITONEAL DRAINAGE INDICATION: Pelvic fluid collection or abscess. TECHNIQUE: Informed consent was obtained and the patient was advised of the usual risk and complications, including infection, bleeding, viscus perforation, and allergy. COMPARISON: Comparison is made to CT abdomen and pelvis on 06/20/2016. FINDINGS: Left lateral decubitus position. Following sterile preparation and 1% lidocaine local anesthetic, CT guidance was utilized to place a 16-gauge angiocatheter into the right posterior buttocks and directed into a pelvic cul- de-sac fluid collection. This yielded hemorrhagic fluid (samples sent for Gram stain culture). Utilizing an 0.038 guidewire and dilators (8-Argentine, 10-Argentine), a 10-Argentine cope loop catheter was inserted and directed into the cavity. This yielded approximate 100 ml of hemorrhagic fluid. The catheter was irrigated with 300 ml normal saline, secured to the patient's side, and placed to Jonathon-Tracey bulb suction. The patient tolerated procedure reasonably well and there are no complications. IMPRESSION: 1. Successful CT-guided partial drainage of pelvic fluid collection with placement of 10-Argentine drainage tube (right posterior buttocks), yielding 100 ml of hemorrhagic fluid. Findings are compatible with an evolving hematoma. 2. Findings discussed with Dr. Kenyon.
--- NOTE | 2016-06-22 12:13 | DIAGNOSTIC IMAGING REPORT ---
PROCEDURE: CT RETRO/PERITONEAL DRAINAGE INDICATION: Anterior abdominal/pelvic fluid collection. Possible abscess. Recent resection of ischemic bowel segment. TECHNIQUE: The patient received oral contrast earlier today to opacify the bowel. Informed consent was obtained and the patient was advised to use a risk and complications, including infection, bleeding, viscus perforation, and allergy. Conscious sedation provided by the Department of Anesthesia. Antibiotic protocol per Dr. Kenyon. COMPARISON: Comparison is made to CT abdomen and pelvis on 06/20/2016. FINDINGS: Supine position. Following sterile preparation and 1% lidocaine local anesthetic, CT guidance was utilized to place a 16-gauge short angiocatheter in the upper suprapubic region and directed into the pelvic fluid collection. This yielded only a small amount of hemorrhagic fluid (samples sent for Gram stain culture). Attempts to pass a 0.038 guidewire were unsuccessful. Because of this, a longer 16-gauge angiocatheter was directed into the fluid collection, and A 0.038 guidewire was successfully passed into the fluid collection. Using dilators 98 [place], 10-St Helenian), a 10-[place] Helenian cope loop catheter was inserted into the collection, yielding 50 ml of hemorrhagic fluid. The catheter was irrigated with 150 ml of normal saline, secured to the patient's side, and placed to Jonathon-Tracey bulb suction. The patient tolerated procedure reasonably well and was transferred back to the floor in satisfactory condition, under the care of Anesthesia. IMPRESSION: 1. Successful CT-guided partial drainage of central abdominal fluid collection with 10-St Helenian drainage tube, although this yielded only 50 ml of hemorrhagic fluid. These findings are compatible with an evolving intra-abdominal hematoma. 2. Findings discussed with Dr. Kenyon.
--- NOTE | 2016-06-22 12:13 | DIAGNOSTIC IMAGING REPORT ---
PROCEDURE: CT RETRO/PERITONEAL DRAINAGE INDICATION: Anterior abdominal/pelvic fluid collection. Possible abscess. Recent resection of ischemic bowel segment. TECHNIQUE: The patient received oral contrast earlier today to opacify the bowel. Informed consent was obtained and the patient was advised to use a risk and complications, including infection, bleeding, viscus perforation, and allergy. Conscious sedation provided by the Department of Anesthesia. Antibiotic protocol per Dr. Kenyon. COMPARISON: Comparison is made to CT abdomen and pelvis on 06/20/2016. FINDINGS: Supine position. Following sterile preparation and 1% lidocaine local anesthetic, CT guidance was utilized to place a 16-gauge short angiocatheter in the upper suprapubic region and directed into the pelvic fluid collection. This yielded only a small amount of hemorrhagic fluid (samples sent for Gram stain culture). Attempts to pass a 0.038 guidewire were unsuccessful. Because of this, a longer 16-gauge angiocatheter was directed into the fluid collection, and A 0.038 guidewire was successfully passed into the fluid collection. Using dilators 98 Latvian, 10-Latvian), a 10-Latvian cope loop catheter was inserted into the collection, yielding 50 ml of hemorrhagic fluid. The catheter was irrigated with 150 ml of normal saline, secured to the patient's side, and placed to Jonathon-Tracey bulb suction. The patient tolerated procedure reasonably well and was transferred back to the floor in satisfactory condition, under the care of Anesthesia. IMPRESSION: 1. Successful CT-guided partial drainage of central abdominal fluid collection with 10-Latvian drainage tube, although this yielded only 50 ml of hemorrhagic fluid. These findings are compatible with an evolving intra-abdominal hematoma. 2. Findings discussed with Dr. Kenyon.
[2016-06-22 14:17] VITALS: BP 108/53
[2016-06-22 18:01] VITALS: BP 93/52
[2016-06-22 22:22] VITALS: BP 90/51
[2016-06-23 02:55] VITALS: BP 91/51
[2016-06-23 06:18] VITALS: BP 93/52
[2016-06-23 10:47] VITALS: BP 109/61
[2016-06-23 14:23] VITALS: BP 110/55
[2016-06-23 18:40] VITALS: BP 106/59
[2016-06-23 23:35] VITALS: BP 118/69
[2016-06-24 02:55] VITALS: BP 103/67
[2016-06-24 07:46] VITALS: BP 97/64
[2016-06-24 11:49] VITALS: BP 105/68
[2016-06-24 14:31] VITALS: BP 108/70
[2016-06-24 18:19] VITALS: BP 121/71
[2016-06-24 22:38] VITALS: BP 119/76
[2016-06-25 02:53] VITALS: BP 115/64
[2016-06-25 06:31] VITALS: BP 140/82
[2016-06-25 10:23] VITALS: BP 117/79
[2016-06-25 14:25] VITALS: BP 144/86
[2016-06-25 18:23] VITALS: BP 148/85
[2016-06-25 22:54] VITALS: BP 164/88
[2016-06-26 02:42] VITALS: BP 150/90
[2016-06-26 06:41] VITALS: BP 136/88
[2016-06-26 10:30] VITALS: BP 132/86
[2016-06-26 14:39] VITALS: BP 130/81
[2016-06-26 18:19] VITALS: BP 139/77
[2016-06-27 00:17] VITALS: BP 137/78
[2016-06-27 03:02] VITALS: BP 143/82
[2016-06-27 07:35] VITALS: BP 139/87
[2016-06-27 10:36] VITALS: BP 144/78
--- NOTE | 2016-06-27 14:11 | Provider's Discharge Care Plan ---
Problem, Goal, Plan Problem List 1. SBO (small bowel obstruction) 2. Post-operative wound abscess
--- NOTE | 2016-06-27 14:11 | Provider's Discharge Care Plan ---
Problem, Goal, Plan Problem List 1. SBO (small bowel obstruction) 2. Post-operative wound abscess
--- NOTE | 2016-07-11 15:37 | DISCHARGE SUMMARY ---
ADMIT DATE: 06/21/2016 DISCHARGE DATE: 06/27/2016 DISCHARGE DIAGNOSIS: 1. Postoperative hematoma x2 HOSPITAL COURSE: The patient is a 61-year-old woman who was originally admitted to the hospital for abdominal pains following a recent diagnostic laparoscopy on 2016. At that time, the procedure was done for a small-bowel obstruction associated with strangulation of the small bowel. A small bowel resection was carried out. Initial CT scan demonstrated some fluid collections, and the patient additionally had leukocytosis on admission. She underwent CT-guided drainage using 2 separate catheters in Radiology, which yielded 100 mL of bloody fluid on one side and 50 on the other side. The subsequent fluid output was relatively scanty following placement, and this appeared to be a partially organized blood clot in both cases. Gram stain was without bacteria. The patient appeared to be mildly bloated, but her bowel function rapidly returned and she was started on oral fluids and nutritional supplements. Her leukocytosis began to resolve, and the patient was able to advance her diet. Her drainage had become serous and had dropped off quite a bit. The patient was tolerating diet and passing gas. The patient was discharged on hospital day #8, at which time the drains were removed, antibiotics stopped, and the patient at that point was tolerating a regular diet and having pain managed by plain Tylenol. DISCHARGE INSTRUCTIONS/MEDICATIONS: follow up at [facility] next week tylenol for pain
== END 2016-06-27 16:00 | disposition home or self-care (01) | DRG 813 ==
LOC: ACUTE2 SRH 17:07
PROVIDERS: Radiology Diagnostic Radiology; ADMIT Surgery
PROC: 0W9G30Z Drainage of Peritoneal Cavity with Drainage Device, Percutaneous Approach (ICD-10-PCS; principal; 2016-06-21 14:00)
DX: K91.870 Postprocedural hematoma of a digestive system organ or structure following a digestive system procedure (principal); R55 Syncope and collapse; I10 Essential (primary) hypertension
CPT/HCPCS: 29230; 29243; 29244; 29247; 29263; 81805; 82389; 82445; 82541; 82588; 82589; 85241; 85244; 90004; 90070; 90074; 90100; 90133; 90309; 90470; 91643; 91672; 95059

== ENCOUNTER 2016-07-31 09:28 | Inpatient (IN) | payer OTHER ==
[~2016-07-31] VITALS: Ht 165.1 cm; Wt 46.8 kg
[~2016-07-31 09:28] MED LIST changes: +LEVOTHYROXINE75 MCG PO; +VITAMIN D1000 UNIT PO
--- NOTE | 2016-07-31 12:52 | DIAGNOSTIC IMAGING REPORT ---
PROCEDURE: ABDOMEN/PELVIS WITH CONTRAST CLINICAL INDICATION: POST-OP ABDOMINAL PAIN TECHNIQUE: 90 ml of Isovue 300 were injected intravenously and axial images were obtained of the abdomen and pelvis with sagittal and coronal reformations. COMPARISON: 06/20/2016 and 06/21/2016 FINDINGS: ABDOMEN: Dependent cholelithiasis. Mild intrahepatic biliary dilatation. No CT evidence of choledocholithiasis. 4.2 cm left renal cyst. Clear lung bases. Normal sized heart. No hiatal hernia. The liver, adrenal glands, kidneys, pancreas and spleen are normal. The abdominal aorta is normal in its course and caliber. Minor atherosclerosis. There are no suspicious calcifications, retroperitoneal adenopathy or masses. The stomach, upper bowel loops, and mesentery are normal. Intact anterior abdominal wall. No free fluid or inflammation. PELVIS: Interval removal of anterior and posterior pelvic drains. There is a well-defined fluid collection anterior in the pre vesicular space measuring 4.0 x 5.7 x 2.8 cm. It demonstrates an irregular, thick, peripherally enhancing wall. It is slightly posteriorly displaces the urinary bladder. Surgically absent appendix. Postsurgical changes of bowel resection in the right lower quadrant. Scattered air-fluid levels in normal-caliber small bowel. Moderate distal colonic retained stool. Uterus appears normal. Ovaries are not visualized. 2.5 cm right adnexal cyst appear stable. No free fluid in the pelvis. Posterior pelvic fluid collection has entirely resolved. IMPRESSION: 1. Residual anterior 5.7 cm pelvic fluid collection suspicious for abscess/evolving hematoma. 2. Interval removal of anterior and posterior pelvic drains with resolved posterior pelvic fluid collection. 3. Surgical changes of bowel resection in the right lower quadrant, appendectomy, and left oophorectomy. 4. Cholelithiasis. 5. Discussed with Dr. De La Cruz in the emergency room. All CT scans at this facility use dose modulation, iterative reconstruction, and/or weight-based dosing when appropriate to reduce radiation dose to as low as reasonably achievable.
--- NOTE | 2016-07-31 13:56 | ED CLINICAL REPORT ---
Clinical Report - Physicians/Mid Levels Located Within [facility] [address] [place] [address] 07/31/2016 9:29 Patient: NGOC MARTINO Time Seen: 10:24. Arrived- By private vehicle. Historian- patient. HISTORY OF PRESENT ILLNESS Chief Complaint: ABDOMINAL PAIN. This started about 1 week ago and is still present. It is described as located in the lower abdomen. At its maximum, severity described as moderate. When seen in the E.D., severity described as moderate. Modifying factors. Not worsened by anything. Not relieved by anything. No nausea, loss of appetite, vomiting or diarrhea. (Pt has had mild hematuria.). Similar symptoms previously: Recent medical care: The patient was seen recently by a health care provider. ( PT had a small bowel obstruction in June, and had a partial SB resection. Pt subsequently developed post-op abscesses, and had to have 2 drains placed, she states. Things seemed to be going better, and drains were removed a couple of weeks ago; however, pain has begun to creep back, and pt states "something does not feel right down there."). REVIEW OF SYSTEMS No constipation, black stools, hematemesis, difficulty with urination or pain with urination. No urinary frequency, bloody stools, fever, headache or sore throat. No blurred vision, chest pain, difficulty breathing, cough or joint pain. No skin rash, chills or back pain. All systems otherwise negative, except as recorded above. PAST HISTORY Problems: Tubal . Bowel Obstruction. Syncope. Alcohol Intoxication. Thyroid Disease. Hypertension. Additional Surgeries: C section . Partial small bowel resection. Thyroid Surgery. Tubal . Medications: Levothyroxine Sodium Oral (Tablet 150 mcg) 1 tablet, daily. Allergies: No Known Drug Allergy. SOCIAL HISTORY Smoker- current status unknown. No alcohol use or drug use. ADDITIONAL NOTES The nursing notes have been reviewed. PHYSICAL EXAM Vital Signs: 07/31/2016 10:12 BP: 166/97. HR: 90. RR: 20. O2 saturation: 100%. Temp: 97.8 F. Pain level now: 7/10. Have been reviewed. Appearance: Alert. Oriented X3. No acute distress. Eyes: Pupils equal, round and reactive to light. Eyes normal inspection. ENT: Nose normal. Neck: Normal inspection. Neck supple. CVS: Normal heart rate and rhythm. Heart sounds normal. Pulses normal. Respiratory: No respiratory distress. Breath sounds normal. Abdomen: Soft. Moderate tenderness in the suprapubic area. No guarding or rebound tenderness. Back: Normal inspection. No CVA tenderness. Skin: Skin warm and dry. Normal skin color. No rash. Normal skin turgor. Extremities: Extremities exhibit normal ROM. No lower extremity edema. Neuro: Oriented X 3. No motor deficit. No sensory deficit. LABS, X-RAYS, AND EKG Abdominal CT: A single mass present. Findings consistent with an abscess. (Fluid-filled, R pelvis, adjacent to and distorting bladder). Normal aorta. Normal spleen, pancreas, adrenals and kidneys. No bony lesion. No diverticulitis. Study type: abdomen and pelvis. Abdominal CT performed with IV contrast. The study was independently viewed by me, interpreted by the radiologist and contemporaneously by me and discussed with the radiologist. A comparison with prior studies was made (interval recurrence of abscess since placement of drains). Laboratory Tests: UA-Culture if indicated: (LISSETTE: 07/31/2016 11:15) ( MsgRcvd 07/31/2016 12:05) Final results Test Result Flag Units (Reference) URINE COLOR YELLOW URINE APPEARANCE CLEAR URINE GLUCOSE NEGATIVE (NEGATIVE) URINE BILIRUBIN NEGATIVE (NEGATIVE) URINE KETONE NEGATIVE (NEGATIVE) URINE SPECIFIC GRAVITY 1.020 (1.010-1.030) URINE PH 5.5 (5.0-8.0) URINE PROTEIN NEGATIVE (NEGATIVE) URINE UROBILINOGEN 0.2 EU/dL (0.2-1.0) URINE NITRITE NEGATIVE (NEGATIVE) URINE BLOOD TRACE-INTACT (NEGATIVE) URINE LEUK ESTERASE NEGATIVE (NEGATIVE) URINE RBC 1-3 rbc/hpf (0-1) URINE WBC 0-1 wbc/hpf (0-1) URINE EPITHELIAL CELLS 0-1 EPI/hpf (0-5) URINE BACTERIA NONE SEEN (NONE SEEN) URINE COMMENT CULT NOT INDICATED FEW HYALINE CASTSURINE CULTURES ARE SET-UP BASED ON THE FOLLOWING CRITERIA:POSITIVE NITRITEPOSITIVE LEUKOCYTE ESTERASEGREATER THAN 10 WHITE BLOOD CELLSMODERATE (2+) OR GREATER BACTERIA CBC w Diff: (LISSETTE: 07/31/2016 11:15) ( [facility] 07/31/2016 11:36) Final results Test Result Flag Units (Reference) WHITE BLOOD COUNT 10.2 K/uL (4.5-11.5) RED BLOOD COUNT 4.10 M/uL (4.00-5.20) HEMOGLOBIN 12.3 gm/dL (12.0-16.0) HEMATOCRIT 36.7 % (36.0-46.0) MEAN CELL VOLUME 90 fL (80-100) MEAN CORPUSCULAR HGB 30 pg (26-34) MEAN CORPUSCULAR HGB CONC 34 g/dL (31-37) RED CELL DISTRIBUTION WIDTH 15.4 H % (11.6-14.8) PLATELET COUNT 315 K/uL (150-400) NEUTROPHIL % 73.9 % (50-75) LYMPH % 19.4 L % (25-40) MONO % 5.5 % (3-14) EOSINOPHIL % 0.8 % (0-4) BASOPHIL % 0.4 % (0-2) PT with INR: (LISSETTE: 07/31/2016 11:15) ( [facility] 07/31/2016 11:42) Final results Test Result Flag Units (Reference) INR 1.0 (0.8-1.2) Low Intensity Therapy: INR 1.5-2.0 PT range 18.5-23.1Mod.Intensity Therapy: INR 2.0-3.0 PT range 23.1-31.5High Intensity Therapy: INR 2.5-3.5 PT range 27.4-35.5High Intensity Therapy 2: INR 3.0-4.0 PT range 31.5-39.3 CMP: (LISSETTE: 07/31/2016 11:15) ( [facility] 07/31/2016 11:50) Final results Test Result Flag Units (Reference) GLUCOSE 81 mg/dL (70-110) BUN 10 mg/dL (7-18) CREATININE 0.6 mg/dL (0.6-1.3) Estimated GFR >60 mL/min Estimated GFR- >60 mL/min Note: Persistent reduction over 3 months in eGFR<60 mL/min/1.73 m2 defines CKD. Patients with eGFR values>=60 mL/min/1.73 m2 may also have CKD if evidence ofpersistent proteinuria. Additional information may be foundat [email or web address].org. SODIUM 143 mmol/L (136-145) POTASSIUM 4.9 mmol/L (3.5-5.1) CHLORIDE 106 mmol/L (98-107) CARBON DIOXIDE 28 mmol/L (21-32) CALCIUM 9.5 mg/dL (8.5-10.1) TOTAL PROTEIN 8.8 H g/dL (6.4-8.2) ALBUMIN 3.3 g/dL (3.3-5.0) BILIRUBIN, TOTAL 0.4 mg/dL (0.0-1.0) ALKALINE PHOSPHATASE 81 U/L (46-116) AST (SGOT) 40 H U/L (15-37) ALT (SGPT) 35 U/L (12-78) Type & Screen: (LISSETTE: 07/31/2016 11:15) ( MsgRcvd 07/31/2016 13:18) Final results Test Result Flag Units (Reference) PATIENT BLOOD TYPE O Positive Above is a corrected result. Previously reported on ( MsgRcvd 07/31/2016 12:56) as: PATIENT BLOOD TYPE O Positive ANTIBODY SCREEN NEGATIVE . Pulse Oximetry: 07/31/2016 10:12 O2 saturation: 100%. (FIO2 - room air). Interpretation: normal. PROGRESS AND PROCEDURES Course of Care: Pt was treated symptomatically with Dilaudid and IV fluids, and worked up for her pain. Upon finding that the abscess had recurred, I did give the pt Invanz IV, per Dr. Johnson's request. He did state plan would be for pt to be drained the next day. Discussed case with on-call health care provider, (Alex). Reviewed test results and need for additional work-up. Agreed upon treatment plan and decision to admit. Orders dictated to me. Health care provider will see patient in hospital. Discussed case with hospitalist. Reviewed test results and need for additional work-up. Agreed upon treatment plan and decision to admit. Health care provider will see patient in ED. Patient counseled in person regarding the patient's stable but serious condition, test results, diagnosis and need for admission. Concerns were addressed. Old medical records reviewed. Disposition orders written. Disposition: Admitted to Acute Care. Condition: stable and serious. CLINICAL IMPRESSION Single deep abscess (intra-abdominal, post-operative). (Electronically signed by Mariaelena De La Cruz MD 08/05/2016 4:35)
--- NOTE | 2016-07-31 13:57 | ED NURSING NOTES ---
Clinical Report - Nurses [facility] [address] [place] [address] 07/31/2016 9:29 Patient: NGOC MARTINO TRIAGE Triage time 10:12 Jul 31 2016. Acuity: LEVEL 3. Chief Complaint: ABDOMINAL PAIN. Alert. No acute distress. --10:21 Esther San R.N. 10:12 07/31/16. BP: 166/97. HR: 90. RR: 20. O2 saturation: 100%. Temp: 97.8 F. Pain level now: 7/10. Pain level upon arrival: 7/10. Pain level at maximum: 10/10. Describes the quality as sharp and burning. It is described as radiating to the back. --10:21 Esther San R.N. Weight: 45.8 kg stated. Height/Length: 65 inches Per Patient. BMI: 16.8. --10:20 Esther San R.N. Medications Levothyroxine Sodium Oral (Tablet 150 mcg) 1 tablet, daily. --10:16 Esther San R.N. Allergies No Known Drug Allergy. --10:16 Esther San R.N. History Arrived by private vehicle. Historian: patient. Accompanied by friend. ( had SBO jun with surgery and then returned in Jun for drainage tubes, since then she has had abd pain that has been increasing.). She has had nausea and abdominal pain. No vomiting or diarrhea. Last oral intake by patient was liquid this morning (10:18 Jul 31 2016). 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 PAST MEDICAL HX: Immunizations: up-to-date. Denies current : LNMP: several years ago. SOCIAL HX: Current every day light tobacco smoker (cigarette)- less than 1/2 a pack per day. History of occasional drug use: marijuana. No alcohol use. No infectious disease exposure. FALL RISK ASSESSMENT: Fall risk assessment completed. No fall risk identified. NUTRITIONAL RISK ASSESSMENT: The nutritional risk assessment revealed no deficiencies. FUNCTIONAL ASSESSMENT: Functional assessment: no impairments noted. LEARNING NEEDS ASSESSMENT: The learning needs assessment revealed no barriers. SKIN INTEGRITY ASSESSMENT: Skin integrity risk assessment completed. No skin integrity risk identified. --10:21 Esther San R.N. PROBLEMS: Tubal . Abdominal Pain. Vomiting. Bowel Obstruction. Syncope. Alcohol Intoxication. Thyroid Disease. Hypertension. --10:17 Esther San R.N. ADDITIONAL SURGERIES: Bowel Surgery. C section . Thyroid Surgery. Tubal . --10:17 Esther San R.N. Interventions ID band on patient. To room. --10:21 Esther San R.N. PHYSICAL ASSESSMENT GENERAL / NEURO / PSYCH: Alert. Oriented X 4. Appears in no acute distress. RESPIRATORY: Respirations not labored. CVS: Capillary refill less than 2 seconds. GI / : The patient has had nausea. Abdominal tenderness. SKIN: Skin is warm and dry. --10:22 Esther San R.N. NURSING PROGRESS NOTES Pulse oximeter and NIBP monitor placed on patient; monitor alarms on. Patient gowned. Head of bed elevated. Two patient identifiers checked. Call light placed in reach. Side rails up x 1. Bed placed in lowest position. Brakes of bed on. Patient ready for evaluation- chart flagged. --10:22 Esther San R.N. 11:15 07/31/2016 Site #1 started via IV in the left hand with an 20g angiocath; one attempt. Blood drawn: rainbow set. Labeled in the presence of the patient and sent to the lab. Saline lock flushed with 10 mL saline. --11:20 Esther San R.N. Patient ID band checked for patient name and birthdate: patient confirmed. Instructions provided to collect clean catch urine and patient verbalized understanding urine collected with return of yellow-colored clear urine; sample sent to lab. Specimen labeled in the presence of the patient. --11:21 Esther San R.N. 11:21 07/31/16. BP: 118/76 (small adult cuff) taken on the left arm, while sitting. HR: 88 (normal rate). O2 saturation: 99% on room air. Pain level now: 12/12. --11:22 Esther San R.N. 11:34 07/31/2016 Started bag #1 1000 mL IV Fluids IV NS (Saline); bolus of 1000 mL over 1 hour(s) via site #1 --11:34 Esther San R.N. 11:34 07/31/2016 Dilaudid (HYDROmorphone HCl PF) IVP 0.5 mg given over 2 minute(s) via site #1. --11:34 Esther San R.N. 11:49 07/31/16. BP: 131/82. HR: 83. RR: 14. O2 saturation: 100%. Pain level now: 09/12. --11:50 Esther San R.N. 11:51 07/31/2016 Dilaudid IVP Response: no adverse reaction pain is improving. Symptoms have improved the patient feels better. --11:51 Esther San R.N. 13:07 07/31/2016 IV Fluids IV NS Discontinued: bag #1 completed. Total amount infused: 1000 mL. IV patency established. IV site checked: no pain, redness, or swelling. IV flushed thoroughly. --13:07 Esther San R.N. 14:00 07/31/2016 Started 1 gm of Invanz IVPB in bag #1 60 mL; at 120 mL/hr over 30 minute(s) via site #1 --14:00 Esther San R.N. ( provided pt with 1/2 sandwich, apple sauce and juice box.). --14:01 Esther San R.N. 14:30 07/31/2016 Invanz IVPB Discontinued: bag #1 completed. Total amount infused: 60 mL. IV patency established. IV site checked: no pain, redness, or swelling. IV flushed thoroughly. --15:00 Esther San R.N. 15:00 07/31/16. BP: 145/78. HR: 79. O2 saturation: 100%. Pain level now: 01/12. --15:00 Esther San R.N. 15:40 07/31/2016 Dilaudid (HYDROmorphone HCl PF) IVP 0.5 mg given over 2 minute(s) via site #1. --15:40 Esther San R.N. 16:25 07/31/2016 Dilaudid (HYDROmorphone HCl PF) IVP 0.5 mg given. via site #1. --22:36 Esther San R.N. DISPOSITION / DISCHARGE Admitted to Acute Care. Patient's personal items include: shirt, pants, undergarments, coat, socks, shoes, glasses, upper denture, purse, wallet and cell phone; items were placed in belongings bag, given to the patient and transported with the patient. Collection of belongings was witnessed by nurse. --15:32 Esther San R.N. 15:39 07/31/16. BP: 133/85. HR: 88. O2 saturation: 100%. Pain level now: 01/12. --15:40 Esther San R.N. 15:30. Report was given to a nurse via a phone call. Report included patient's care, treatment and condition and medications given to the patient in the ED and patient's home medications. All questions were answered. Report was acknowledged and care was transferred. (juana BOOGIE). --15:43 Esther San R.N. Locked/Released at 07/31/2016 22:37 by Esther San R.N.
--- NOTE | 2016-07-31 13:57 | ED ORDER SUMMARY ---
..... Patient: NGOC MARTINO OrderSheet [facility] VisitID: [id number] [address] [place] [address] 61y, F Registration Date/Time: 07/31/2016 ORDER SHEET Weight: 45.8 kg (stated) Allergies: No Known Drug Allergy GENERAL ORDERS: CT Abd/Pel w Cont (No) (N/A) Urgent (10:39 07/31/2016 Caleb SAUCEDA) (Ack 10:46 RKmanda) (13:08 KKnebel R.N.) CBC w Diff Urgent (10:40 07/31/2016 Caleb SAUCEDA) (Ack 10:46 RKmanda) (11:33 KKnebel R.N.) CMP Urgent (10:40 07/31/2016 Caleb SAUCEDA) (Ack 10:46 RKmanda) (11:33 KKnebel R.N.) UA-Culture if indicated Urgent (10:40 07/31/2016 Caleb SAUCEDA) (Ack 10:46 RKcatrachitouga) (11:33 KKnebel R.N.) PT with INR Urgent (10:40 07/31/2016 Caleb SAUCEDA) (Ack 10:46 RKcatrachitouga) (11:33 KKnebel R.N.) Type & Screen Urgent (10:40 07/31/2016 Caleb SAUCEDA) (Ack 10:46 RKcatrachitouga) (11:33 KKnebel R.N.) MEDICATION ORDERS: IV FLUIDS: IV NS : initial bolus 1000 mL (1000 mL/hr), then none - (NOW) (10:39 07/31/2016 Caleb SAUCEDA) (11:34 KKnebel R.N.) Dilaudid IV 0.5 mg (HIGH ALERT MEDICATION, NOW) (10:39 07/31/2016 Caleb SAUCEDA) (11:34 KKnebel R.N.) Invanz IV 1 gm (NOW) (13:33 07/31/2016 Caleb SAUCEDA) (14:00 KKnebel R.N.) Dilaudid IV 0.5 mg (HIGH ALERT MEDICATION, NOW) (15:35 07/31/2016 Caleb SAUCEDA) (15:40 KKnebel R.N.) Dilaudid IV 0.5 mg (HIGH ALERT MEDICATION, NOW) (16:23 07/31/2016 Caleb SAUCEDA) (22:36 [place]) ORDER SHEET NOTES: [Electronically signed by Esther San R.N. (22:37 07/31/2016)] [Electronically signed by Mariaelena De La Cruz MD (04:35 08/05/2016)] [Electronically locked/signed by Esther San R.N. (22:37 07/31/2016)]
--- NOTE | 2016-07-31 13:57 | ED ORDER SUMMARY ---
..... Patient: NGOC MARTINO OrderSheet [facility] VisitID: [id number] [address] [place] [address] 61y, F Registration Date/Time: 07/31/2016 ORDER SHEET Weight: 45.8 kg (stated) Allergies: No Known Drug Allergy GENERAL ORDERS: CT Abd/Pel w Cont (No) (N/A) Urgent (10:39 07/31/2016 Caleb SAUCEDA) (Ack 10:46 RKmanda) (13:08 KKnebel R.N.) CBC w Diff Urgent (10:40 07/31/2016 Caleb SAUCEDA) (Ack 10:46 RKmanda) (11:33 KKnebel R.N.) CMP Urgent (10:40 07/31/2016 Caleb SAUCEDA) (Ack 10:46 RKmanda) (11:33 KKnebel R.N.) UA-Culture if indicated Urgent (10:40 07/31/2016 Caleb SAUCEDA) (Ack 10:46 RKcatrachitouga) (11:33 KKnebel R.N.) PT with INR Urgent (10:40 07/31/2016 Caleb SAUCEDA) (Ack 10:46 RKcatrachitouga) (11:33 KKnebel R.N.) Type & Screen Urgent (10:40 07/31/2016 Caleb SAUCEDA) (Ack 10:46 RKcatrachitouga) (11:33 KKnebel R.N.) MEDICATION ORDERS: IV FLUIDS: IV NS : initial bolus 1000 mL (1000 mL/hr), then none - (NOW) (10:39 07/31/2016 Caleb SAUCEDA) (11:34 KKnebel R.N.) Dilaudid IV 0.5 mg (HIGH ALERT MEDICATION, NOW) (10:39 07/31/2016 Caleb SAUCEDA) (11:34 KKnebel R.N.) Invanz IV 1 gm (NOW) (13:33 07/31/2016 Caleb SAUCEDA) (14:00 KKnebel R.N.) Dilaudid IV 0.5 mg (HIGH ALERT MEDICATION, NOW) (15:35 07/31/2016 Caleb SAUCEDA) (15:40 KKnebel R.N.) Dilaudid IV 0.5 mg (HIGH ALERT MEDICATION, NOW) (16:23 07/31/2016 Caleb SAUCEDA) (22:36 [place]) ORDER SHEET NOTES: [Electronically signed by Esther San R.N. (22:37 07/31/2016)] [Electronically signed by Mariaelena De La Cruz MD (04:35 08/05/2016)] [Electronically locked/signed by Esther San R.N. (22:37 07/31/2016)]
--- NOTE | 2016-07-31 15:07 | History & Physical Report ---
Admission Admit Date 07/31/16 Information Source Information Source: Self, ED Record, Old Records History Chief Complaint Abdominal pain History of Present Illness 61yoF w/ hx of hypothyroidism after total thyroidectomy, who presents for escalating abdominal pain over the past couple weeks. Patient had an episode of SBO about a month ago, and underwent resection of 10cm of bowel at that time w/ Dr. Kenyon. Her post-op course has been c/b several abdominal abscesses which required percutaneous drains. These were removed about 3 weeks ago. Since that time, the pain has worsened and she felt that something was not right, so she came in the the ER. She has been taking prn tylenol at home without much improvement in her pain. She denies fevers, diarrhea, bloody stools, nausea/ vomiting, and she has been able to eat without issues. Patient History 1. SBO (small bowel obstruction) 2. Post-operative wound abscess 3. Hypothyroidism 4. Hypertension Social History Patient smokes about 1/2ppd, and has been working to cut back. She has been smoking since the age of 15. She denies alcohol or illicit drug use. Medications and Allergies Medications Current Medications Sig/Isabel Start time Last Medication Dose Route Stop Time Status Admin Ertapenem 1,000 MG DAILY@1400 08/01 1400 UNV Sodium Chloride 50 ML IV Levothyroxine Sodium 150 MCG DAILY@0600 08/01 0600 UNV PO Acetaminophen 650 MG Q6H PRN 07/31 1500 UNV PO Docusate Sodium 250 MG BID PRN 07/31 1500 UNV PO Hydromorphone HCl 1 MG Q1H PRN 07/31 1500 UNV IV Ondansetron HCl 4 MG Q6H PRN 07/31 1500 UNV IV Allergies Coded Allergies: No Known Drug Allergy (06/10/16) Review of Systems Other As per HPI, rest of 10-point ROS unremarkable. Physical Exam General Appearance Alert, Oriented X3, Cooperative, No acute distress HEENT Atraumatic, PERRLA, Moist mucous membranes Lungs Clear to auscultation Neck Supple Cardiovascular Regular rate and rhythm, Normal S1 and S2, No murmurs, gallops, rubs Abdomen Normal bowel sounds, Soft, tender in suprapubic/subumbilical area to palpation w/o rebound or guarding. She has multiple well-healing surgical scars. Extremities No cyanosis, No clubbing, No edema Skin No Rashes Neurological No lateralizing signs Psych/Mental Status Mental status normal, Mood normal LAB Results Laboratory Tests 07/31 1115 Chemistry Plasma Sodium (136 - 145 mmol/L) 143 Plasma Potassium (3.5 - 5.1 mmol/L) 4.9 Plasma Chloride (98 - 107 mmol/L) 106 CO2 (Enzymatic) (21 - 32 mmol/L) 28 BUN (7 - 18 mg/dL) 10 Creatinine (0.6 - 1.3 mg/dL) 0.6 Est GFR ( Amer) (mL/min) >60 Est GFR (Non-Af Amer) (mL/min) >60 Glucose (70 - 110 mg/dL) 81 Plasma Calcium (8.5 - 10.1 mg/dL) 9.5 Total Bilirubin (0.0 - 1.0 mg/dL) 0.4 AST (15 - 37 U/L) 40 ALT (12 - 78 U/L) 35 Alkaline Phosphatase (46 - 116 U/L) 81 Total Protein (6.4 - 8.2 g/dL) 8.8 Albumin (3.3 - 5.0 g/dL) 3.3 Coagulation INR (0.8 - 1.2) 1.0 Hematology WBC (4.5 - 11.5 K/uL) 10.2 RBC (4.00 - 5.20 M/uL) 4.10 Hgb (12.0 - 16.0 gm/dL) 12.3 Hct (36.0 - 46.0 %) 36.7 MCV (80 - 100 fL) 90 MCH (26 - 34 pg) 30 RDW (11.6 - 14.8 %) 15.4 Neut % (Auto) (50 - 75 %) 73.9 Lymph % (Auto) (25 - 40 %) 19.4 [place] % (Auto) (3 - 14 %) 5.5 Eos % (Auto) (0 - 4 %) 0.8 Baso % (Auto) (0 - 2 %) 0.4 Plt Count, EDTA (150 - 400 K/uL) 315 PUBS MCHC (31 - 37 g/dL) 34 Urines Urine Color YELLOW Urine Appearance CLEAR Urine pH (5.0 - 8.0) 5.5 Ur Specific [place] (1.010 - 1.030) 1.020 Urine Protein (NEGATIVE) NEGATIVE Urine Ketones (NEGATIVE) NEGATIVE Urine Blood (NEGATIVE) TRACE-INTACT Urine Nitrite (NEGATIVE) NEGATIVE Urine Bilirubin (NEGATIVE) NEGATIVE Urine Urobilinogen (0.2 - 1.0 EU/dL) 0.2 Ur Leukocyte Esterase (NEGATIVE) NEGATIVE Urine RBC (0 - 1 rbc/hpf) 1-3 Urine WBC (0 - 1 wbc/hpf) 0-1 Ur Epithelial Cells (0 - 5 EPI/hpf) 0-1 Urine Bacteria (NONE SEEN) NONE SEEN Urine Glucose (NEGATIVE) NEGATIVE Urine Comment CULT NOT INDICATED Assessment and Plan Problem List 1. Intra-abdominal abscess Plan General surgery already consulted, and plan for another drainage tomorrow. In the meantime, will continue on IV ertapenem. Pain control as needed. 2. Hypothyroidism Plan Continue levothyroxine. 3. Hypertension Plan Patient had her meds discontinued after the last hospital stay. Will monitor for now. FEN: regular for now, NPO at [place] PPx: SCDs Code: FULL, per discussion w/ patient in ED Dispo: Inpatient, as may possibly require >2MN hospital stay for drainage and IV abx. E&M Codes Rounding: Inpt-Moderate/[id number]
[2016-07-31 15:54] VITALS: BP 139/76
[2016-07-31 19:03] VITALS: BP 121/69
[2016-07-31 22:54] VITALS: BP 108/72
[2016-08-01] VITALS (8 sets, daily range): BP systolic 93–148; BP diastolic 53–84
--- NOTE | 2016-08-01 10:02 | Progress Note ---
Subjective General No events overnight. Pain is fine after medications. No fevers. Physical Exam Vital Signs / I&Os Vital Signs Date Time Temp Pulse Resp B/P Pulse O2 O2 Flow FiO2 Ox Delivery Rate 08/01 0647 98.8 60 19 93/53 98 Room Air 08/01 0326 98.6 76 16 96/63 96 Room Air 07/31 2254 98.4 74 18 108/72 97 Room Air 07/31 2216 Room Air 07/31 1903 98.2 79 18 121/69 99 Room Air 07/31 1554 98.2 83 20 139/76 100 Room Air I&O 08/01 0000 07/31 1600 07/31 0800 Intake Total 1000 Output Total 750 Balance 250 General Appearance Alert, Oriented X3, Cooperative, No acute distress HEENT Moist mucous membranes Lungs Clear to auscultation Neck Supple Cardiovascular Regular rate and rhythm, Normal S1 and S2, No murmurs, gallops, rubs Abdomen S Tender in subumbilical region w/o rebound or guarding, normoactive BS Extremities No cyanosis, No clubbing, No edema Skin No Rashes Neurological No lateralizing signs LAB Results Laboratory Tests 08/01 07/31 0528 1115 Chemistry Plasma Sodium (136 - 145 mmol/L) 140 143 Plasma Potassium (3.5 - 5.1 mmol/L) 3.9 4.9 Plasma Chloride (98 - 107 mmol/L) 105 106 CO2 (Enzymatic) (21 - 32 mmol/L) 29 28 BUN (7 - 18 mg/dL) 8 10 Creatinine (0.6 - 1.3 mg/dL) 0.7 0.6 Est GFR ( Amer) (mL/min) >60 >60 Est GFR (Non-Af Amer) (mL/min) >60 >60 Glucose (70 - 110 mg/dL) 82 81 Plasma Calcium (8.5 - 10.1 mg/dL) 8.9 9.5 Total Bilirubin (0.0 - 1.0 mg/dL) 0.4 0.4 AST (15 - 37 U/L) 24 40 ALT (12 - 78 U/L) 23 35 Alkaline Phosphatase (46 - 116 U/L) 66 81 Total Protein (6.4 - 8.2 g/dL) 6.7 8.8 Albumin (3.3 - 5.0 g/dL) 2.5 3.3 Coagulation INR (0.8 - 1.2) 1.0 Hematology WBC (4.5 - 11.5 K/uL) 7.4 10.2 RBC (4.00 - 5.20 M/uL) 3.40 4.10 Hgb (12.0 - 16.0 gm/dL) 10.2 12.3 Hct (36.0 - 46.0 %) 30.5 36.7 MCV (80 - 100 fL) 90 90 MCH (26 - 34 pg) 30 30 RDW (11.6 - 14.8 %) 15.1 15.4 Neut % (Auto) (50 - 75 %) 62.9 73.9 Lymph % (Auto) (25 - 40 %) 25.2 19.4 [place] % (Auto) (3 - 14 %) 9.6 5.5 Eos % (Auto) (0 - 4 %) 1.8 0.8 Baso % (Auto) (0 - 2 %) 0.5 0.4 Plt Count, EDTA (150 - 400 K/uL) 240 315 PUBS MCHC (31 - 37 g/dL) 34 34 Urines Urine Color YELLOW Urine Appearance CLEAR Urine pH (5.0 - 8.0) 5.5 Ur Specific [place] (1.010 - 1.030) 1.020 Urine Protein (NEGATIVE) NEGATIVE Urine Ketones (NEGATIVE) NEGATIVE Urine Blood (NEGATIVE) TRACE-INTACT Urine Nitrite (NEGATIVE) NEGATIVE Urine Bilirubin (NEGATIVE) NEGATIVE Urine Urobilinogen (0.2 - 1.0 EU/dL) 0.2 Ur Leukocyte Esterase (NEGATIVE) NEGATIVE Urine RBC (0 - 1 rbc/hpf) 1-3 Urine WBC (0 - 1 wbc/hpf) 0-1 Ur Epithelial Cells (0 - 5 EPI/hpf) 0-1 Urine Bacteria (NONE SEEN) NONE SEEN Urine Glucose (NEGATIVE) NEGATIVE Urine Comment CULT NOT INDICATED Microbiology Date/Time Procedure - Status Source Growth 07/31 1600 MRSA Screen - RECD NASAL Assessment and Plan Problem List 1. Intra-abdominal abscess Plan Continuing ertapenem for now. Plan for drainage today, and will follow up cultures. Will follow up further surgical recs. Continue pain control. 2. Hypothyroidism Plan Continue levothyroxine. 3. Hypertension Plan Stable w/o medications. FEN: NPO for now PPx: SCDs and ambulating the halls Code: FULL Dispo: Pending above and need for continued abx. E&M Codes Rounding: Inpt-Moderate/[id number]
--- NOTE | 2016-08-01 17:16 | DIAGNOSTIC IMAGING REPORT ---
PROCEDURE: CT PELVIS WITHOUT CONTRAST INDICATION: Assess suprapubic fluid collection and right adnexal cyst. TECHNIQUE: Dilute gastrographin oral contrast was ingested. Delayed axial images were obtained of the entire pelvis with sagittal and coronal re- formations. COMPARISON: Comparison is made to CT pelvis studies (07/31/2016, 06/20/2016, and 06/10/2016) FINDINGS: Confirmation of a 5.5 cm thick-walled fluid collection in the ventral lower pelvis (just above the urinary bladder). region. No evidence of bowel involvement. Confirmation of a thin-walled 2.5 cm cyst in the right adnexal region which was present on the original study (06/10/2016). Findings are most compatible with an ovarian cyst. No evidence of bowel involvement. There are postoperative changes of the small bowel with surgical mesh. IMPRESSION: 1. Confirmation of a 5.5 cm fluid collection in the ventral lower pelvis (just above the urinary bladder). Findings are compatible with intrapelvic abscess. 2. There is a 2.5 cm right adnexal cyst. While this most likely represents a simple cyst, follow-up pelvic ultrasound after the patient acute illness (3-4 weeks) is recommended to confirm resolution. All CT scans at this facility use dose modulation, iterative reconstruction, and/or weight-based dosing when appropriate to reduce radiation dose to as low as reasonably achievable.
--- NOTE | 2016-08-01 17:22 | DIAGNOSTIC IMAGING REPORT ---
PROCEDURE: CT RETRO/PERITONEAL DRAINAGE INDICATION: CT-guided drainage of intrapelvic abscess. TECHNIQUE: Informed consent was obtained and the patient was advised of the usual risks and complications including infection, bleeding and allergy. Antibiotic protocol per Dr. Leana Lovett. Conscious sedation provided by the department of Anesthesia. COMPARISON: Comparison is made to CT pelvis (08/01/2016) and CT abdomen and pelvis (07/31/2016). FINDINGS: Supine position. Following sterile preparation and 1% lidocaine local anesthetic, CT guidance was utilized to place a 16-gauge short angiocatheter into the ventral lower pelvis and directed into a 5.5 cm fluid collection. This yielded a small amount of purulent material. Utilizing a 0.038 guidewire and dilators (7-[place] Islander, 8-[place] Islander), an 8-[place] Island[place] cope loop pigtail catheter was inserted into the cavity. Aspiration yielded 20 ml of hemorrhagic/purulent material (specimen sent for Gram stain culture). The cavity was irrigated with of aliquots of normal saline. Catheter was secured to the patient's side (Tegaderm) and placed to Jonathon-Tracey bulb suction. The patient tolerated the procedure reasonably well and there were no complications. The patient was transferred back to the floor in satisfactory condition. IMPRESSION: 1. Successful CT drainage of pelvic abscess with a [place] Islander drainage catheter (20 ml purulent material). All CT scans at this facility use dose modulation, iterative reconstruction, and/or weight-based dosing when appropriate to reduce radiation dose to as low as reasonably achievable.
--- NOTE | 2016-08-01 17:22 | DIAGNOSTIC IMAGING REPORT ---
PROCEDURE: CT RETRO/PERITONEAL DRAINAGE INDICATION: CT-guided drainage of intrapelvic abscess. TECHNIQUE: Informed consent was obtained and the patient was advised of the usual risks and complications including infection, bleeding and allergy. Antibiotic protocol per Dr. Leana Lovett. Conscious sedation provided by the department of Anesthesia. COMPARISON: Comparison is made to CT pelvis (08/01/2016) and CT abdomen and pelvis (07/31/2016). FINDINGS: Supine position. Following sterile preparation and 1% lidocaine local anesthetic, CT guidance was utilized to place a 16-gauge short angiocatheter into the ventral lower pelvis and directed into a 5.5 cm fluid collection. This yielded a small amount of purulent material. Utilizing a 0.038 guidewire and dilators (7-Spanish, 8-Spanish), an 8-Spanish cope loop pigtail catheter was inserted into the cavity. Aspiration yielded 20 ml of hemorrhagic/purulent material (specimen sent for Gram stain culture). The cavity was irrigated with of aliquots of normal saline. Catheter was secured to the patient's side (Tegaderm) and placed to Jonathon-Tracey bulb suction. The patient tolerated the procedure reasonably well and there were no complications. The patient was transferred back to the floor in satisfactory condition. IMPRESSION: 1. Successful CT drainage of pelvic abscess with a Spanish drainage catheter (20 ml purulent material). All CT scans at this facility use dose modulation, iterative reconstruction, and/or weight-based dosing when appropriate to reduce radiation dose to as low as reasonably achievable.
[2016-08-02 02:26] VITALS: BP 95/58
[2016-08-02 06:59] VITALS: BP 99/58
--- NOTE | 2016-08-02 09:12 | Progress Note ---
Subjective General Note Date: August 02, 2016 Admission Date: July 31, 2016 Hospital Day: 3 PCP: Bonnie Cortés MD Status: Inpatient Advanced Directive: FULL CODE Room: 306 Brief History: The patient is a 61-year-old white female with a significant past medical history of small bowel obstruction status post small bowel resection on June 11, 2016 secondary to small bowel obstruction/strangulation. The patient developed postoperative hematoma/abscess formation requiring percutaneous drainage. The patient developed abdominal pain over the 2 weeks prior to admission. [facility] ER evaluation showed the patient to have findings consistent with recurrent intra-abdominal abscess and the patient was admitted by Leana Lovett M.D. for further evaluation and treatment. For other history present illness, past medical history, family history, social history, review of systems, and admission physical examination please see the patient's history and physical examination and ER visit note in the patient's medical record. Subjective: The patient states she is doing much better today. Abdominal pain improved status post percutaneous drainage of intra-abdominal abscess. Patient requests: None Medications and Allergies Medications Current Medications Sig/Isabel Start time Last Medication Dose Route Stop Time Status Admin Ertapenem 1,000 MG DAILY@1400 08/01 1400 AC 08/01 Sodium Chloride 50 ML IV 1351 Famotidine/Sodium 50 ML Q12HR 08/01 0900 AC 08/02 Chloride IV 0901 Levothyroxine Sodium 150 MCG DAILY@0600 08/01 0600 AC 08/02 PO 0607 Sodium Chloride/ 1,000 ML ASDIRECTED 07/31 2045 AC 08/02 Electrolytes IV 0446 Metoclopramide HCl 10 MG Q6HR 07/31 1800 AC 08/02 IV 0607 Meperidine HCl 25 MG Q2H PRN 07/31 1745 AC 08/01 IV 2018 Acetaminophen 650 MG Q6H PRN 07/31 1500 AC PO Docusate Sodium 250 MG BID PRN 07/31 1500 AC PO Hydromorphone HCl 1 MG Q1H PRN 07/31 1500 AC 08/02 IV 0901 Ondansetron HCl 4 MG Q6H PRN 07/31 1500 AC IV Allergies Coded Allergies: No Known Drug Allergy (07/31/16) Physical Exam Vital Signs / I&Os Vital Signs Date Time Temp Pulse Resp B/P Pulse O2 O2 Flow FiO2 Ox Delivery Rate 08/02 0659 98.1 65 20 99/58 99 Room Air 08/02 0226 98.2 72 17 95/58 95 Room Air 08/01 2233 98.4 68 16 98/54 98 Room Air 08/01 2059 Room Air 08/01 1823 98.2 68 16 119/65 97 Room Air 08/01 1700 68 14 130/76 97 Room Air 08/01 1640 97.5 78 18 148/84 100 Room Air 08/01 1418 98.4 70 16 111/62 100 Room Air 08/01 1140 98.2 66 21 95/54 100 Room Air I&O 08/02 0000 08/01 1600 08/01 0800 Intake Total 366 568 0 Output Total 1020 1075 350 Balance -321 -826 -350 General Appearance Alert, Oriented X3, Cooperative, No acute distress Lungs Clear to auscultation, Normal air movement Cardiovascular Regular rate and rhythm, Normal S1 and S2 Abdomen Normal bowel sounds, Soft, mild suprapubic tenderness. Percutaneous drain in place. Extremities No cyanosis, No clubbing Neurological Grossly normal Psych/Mental Status Mental status normal, Mood normal LAB Results Microbiology Date/Time Procedure - Status Source Growth 08/01 1630 Deep Wound Culture - RES [facility] 08/01 1630 [facility] 1630 Gram Stain - RES [facility] Assessment and Plan Problem List 1. Intra-abdominal abscess Plan -Status post percutaneous drainage -Continue ertapenem -Awaiting culture results -Follow per surgery. Transfer care to surgical staff. 2. Hypothyroidism Plan -Stable -Continue outpatient medical regimen. 3. Hypertension Plan -Stable -Blood pressure well controlled to slightly low -Monitor Current status: Fair, improved Anticipated discharge date: Per surgical staff Anticipated discharge placement: Home Patient care time: Time spent in chart review, patient interview, physical exam, CPOE, and care documentation: 25 minutes Visit to patient today: 1 Complexity of care: Moderate Plan transfer of care to surgical staff-Dr. Kenyno. E&M Codes Rounding: Inpt-Moderate/[id number]
--- NOTE | 2016-08-02 09:12 | Progress Note ---
Subjective General Note Date: August 02, 2016 Admission Date: July 31, 2016 Hospital Day: 3 PCP: Bonnie Cortés MD Status: Inpatient Advanced Directive: FULL CODE Room: 306 Brief History: The patient is a 61-year-old white female with a significant past medical history of small bowel obstruction status post small bowel resection on June 11, 2016 secondary to small bowel obstruction/strangulation. The patient developed postoperative hematoma/abscess formation requiring percutaneous drainage. The patient developed abdominal pain over the 2 weeks prior to admission. [facility] ER evaluation showed the patient to have findings consistent with recurrent intra-abdominal abscess and the patient was admitted by Leana Lovett M.D. for further evaluation and treatment. For other history present illness, past medical history, family history, social history, review of systems, and admission physical examination please see the patient's history and physical examination and ER visit note in the patient's medical record. Subjective: The patient states she is doing much better today. Abdominal pain improved status post percutaneous drainage of intra-abdominal abscess. Patient requests: None Medications and Allergies Medications Current Medications Sig/Isabel Start time Last Medication Dose Route Stop Time Status Admin Ertapenem 1,000 MG DAILY@1400 08/01 1400 AC 08/01 Sodium Chloride 50 ML IV 1351 Famotidine/Sodium 50 ML Q12HR 08/01 0900 AC 08/02 Chloride IV 0901 Levothyroxine Sodium 150 MCG DAILY@0600 08/01 0600 AC 08/02 PO 0607 Sodium Chloride/ 1,000 ML ASDIRECTED 07/31 2045 AC 08/02 Electrolytes IV 0446 Metoclopramide HCl 10 MG Q6HR 07/31 1800 AC 08/02 IV 0607 Meperidine HCl 25 MG Q2H PRN 07/31 1745 AC 08/01 IV 2018 Acetaminophen 650 MG Q6H PRN 07/31 1500 AC PO Docusate Sodium 250 MG BID PRN 07/31 1500 AC PO Hydromorphone HCl 1 MG Q1H PRN 07/31 1500 AC 08/02 IV 0901 Ondansetron HCl 4 MG Q6H PRN 07/31 1500 AC IV Allergies Coded Allergies: No Known Drug Allergy (07/31/16) Physical Exam Vital Signs / I&Os Vital Signs Date Time Temp Pulse Resp B/P Pulse O2 O2 Flow FiO2 Ox Delivery Rate 08/02 0659 98.1 65 20 99/58 99 Room Air 08/02 0226 98.2 72 17 95/58 95 Room Air 08/01 2233 98.4 68 16 98/54 98 Room Air 08/01 2059 Room Air 08/01 1823 98.2 68 16 119/65 97 Room Air 08/01 1700 68 14 130/76 97 Room Air 08/01 1640 97.5 78 18 148/84 100 Room Air 08/01 1418 98.4 70 16 111/62 100 Room Air 08/01 1140 98.2 66 21 95/54 100 Room Air I&O 08/02 0000 08/01 1600 08/01 0800 Intake Total 366 568 0 Output Total 1020 1075 350 Balance -079 -282 -350 General Appearance Alert, Oriented X3, Cooperative, No acute distress Lungs Clear to auscultation, Normal air movement Cardiovascular Regular rate and rhythm, Normal S1 and S2 Abdomen Normal bowel sounds, Soft, mild suprapubic tenderness. Percutaneous drain in place. Extremities No cyanosis, No clubbing Neurological Grossly normal Psych/Mental Status Mental status normal, Mood normal LAB Results Microbiology Date/Time Procedure - Status Source Growth 08/01 1630 Deep Wound Culture - RES [facility] 08/01 1630 [facility] 1630 Gram Stain - RES [facility] Assessment and Plan Problem List 1. Intra-abdominal abscess Plan -Status post percutaneous drainage -Continue ertapenem -Awaiting culture results -Follow per surgery. Transfer care to surgical staff. 2. Hypothyroidism Plan -Stable -Continue outpatient medical regimen. 3. Hypertension Plan -Stable -Blood pressure well controlled to slightly low -Monitor Current status: Fair, improved Anticipated discharge date: Per surgical staff Anticipated discharge placement: Home Patient care time: Time spent in chart review, patient interview, physical exam, CPOE, and care documentation: 25 minutes Visit to patient today: 1 Complexity of care: Moderate Plan transfer of care to surgical staff-Dr. Kenyon. E&M Codes Rounding: Inpt-Moderate/[id number]
[2016-08-02 10:51] VITALS: BP 113/71
[2016-08-02 14:52] VITALS: BP 109/65
[2016-08-02 18:35] VITALS: BP 133/70
[2016-08-02 22:13] VITALS: BP 120/67
[2016-08-03 03:29] VITALS: BP 123/78
[2016-08-03 06:27] VITALS: BP 135/77
[2016-08-03 10:19] VITALS: BP 116/70
--- NOTE | 2016-08-03 13:00 | Progress Note ---
Subjective General No complaints, comfortable Physical Exam Vital Signs / I&Os Vital Signs Date Time Temp Pulse Resp B/P Pulse O2 O2 Flow FiO2 Ox Delivery Rate 08/03 1019 97.7 66 16 116/70 100 Room Air 0.0 08/03 0840 Room Air 08/03 0627 98.1 56 20 135/77 95 Room Air 0.0 08/03 0329 97.9 80 16 123/78 94 Room Air 08/02 2213 97.9 66 16 120/67 99 Room Air 08/02 2001 Room Air 08/02 1835 97.3 59 16 133/70 100 Room Air 08/02 1452 98.8 61 16 109/65 99 Room Air I&O 08/02 0800 08/02 1600 08/03 0000 Intake Total 340 3161 1925 Output Total 1365 2054 1660 Balance -1025 1107 265 General Appearance Alert, Oriented X3, Cooperative Abdomen Normal exam, Normal bowel sounds, drain with mainly scant serous output Assessment and Plan Problem List 1. Intra-abdominal abscess Plan may send home tommorow but leave drain about 10 days from placement
[2016-08-03 14:26] VITALS: BP 116/76
[2016-08-03 18:28] VITALS: BP 130/76
[2016-08-03 22:47] VITALS: BP 132/77
[2016-08-04] VITALS (7 sets, daily range): BP systolic 100–132; BP diastolic 56–80
--- NOTE | 2016-08-04 17:34 | Progress Note ---
Subjective General no new comlaints, a little sore at the drain site. Physical Exam Vital Signs / I&Os Vital Signs Date Time Temp Pulse Resp B/P Pulse O2 O2 Flow FiO2 Ox Delivery Rate 08/04 1553 0.0 08/04 1431 97.9 66 20 106/70 99 Room Air / 1059 98.2 55 20 127/75 100 Room Air 0.0 08/04 0748 Room Air 08/04 0609 98.8 58 20 132/68 100 Room Air 0.0 / 0534 98.4 99 17 100/56 96 Room Air 08/04 0418 0.0 / 0347 98.2 57 17 130/68 100 Room Air 08/03 2247 97.9 59 17 132/77 99 Room Air 08/03 1828 97.9 56 17 130/76 100 Room Air I&O 08/03 0800 / 1600 08/04 0000 Intake Total 150 1409 450 Output Total 004 026 3213 Balance -812 454 -800 General Appearance Alert, Oriented X3, Cooperative Abdomen Normal exam Assessment and Plan Problem List 1. Intra-abdominal abscess Plan discharge tommorow if doing OK
--- NOTE | 2016-08-04 17:34 | Progress Note ---
Subjective General no new comlaints, a little sore at the drain site. Physical Exam Vital Signs / I&Os Vital Signs Date Time Temp Pulse Resp B/P Pulse O2 O2 Flow FiO2 Ox Delivery Rate 08/04 1553 0.0 08/04 1431 97.9 66 20 106/70 99 Room Air / 1059 98.2 55 20 127/75 100 Room Air 0.0 08/04 0748 Room Air 08/04 0609 98.8 58 20 132/68 100 Room Air 0.0 / 0534 98.4 99 17 100/56 96 Room Air 08/04 0418 0.0 / 0347 98.2 57 17 130/68 100 Room Air 08/03 2247 97.9 59 17 132/77 99 Room Air 08/03 1828 97.9 56 17 130/76 100 Room Air I&O 08/03 0800 / 1600 08/04 0000 Intake Total 150 1409 450 Output Total 101 196 6585 Balance -812 454 -800 General Appearance Alert, Oriented X3, Cooperative Abdomen Normal exam Assessment and Plan Problem List 1. Intra-abdominal abscess Plan discharge tommorow if doing OK
[2016-08-04] MEDS ORDERED: PERCOCET1 TA1 PO (17:41)
--- NOTE | 2016-08-04 17:42 | Provider's Discharge Care Plan ---
Problem, Goal, Plan Problem List 1. Intra-abdominal abscess
--- NOTE | 2016-08-04 17:42 | Provider's Discharge Care Plan ---
Problem, Goal, Plan Problem List 1. Intra-abdominal abscess
--- NOTE | 2016-08-05 04:35 | ED DISCHARGE INSTRUCTIONS ---
Patient: NGOC MARTINO General Instructions [facility] VisitID: [id number] [address] [place] [address] 61y, F Registration Date/Time: 07/31/2016 Single deep abscess (intra-abdominal, post-operative). (Electronically signed by Mariaelena De La Cruz MD 08/05/2016 4:35)
--- NOTE | 2016-08-05 04:35 | ED MAR SUMMARY ---
..... Medication Administration Record [facility] [address] [place] [address] Patient: NGOC MARTINO Visit ID: [id number] 61y, F Weight: 45.8 kg Height/Length: 65 in BMI: 16.8 ALLERGIES: No Known Drug Allergy Start 11:34 07/31/2016 Esther San R.N., Stop 13:07 07/31/2016 Esther San R.N. Medication Administered: IV NS (SALINE), Dose: IV Fluids, Bolus: 1000 mL over 1 hour(s), Dispensed: 1000 mL bag, Site: #1 left hand. Medication Ordered: IV NS : initial bolus 1000 mL (1000 mL/hr), then none - (NOW). Given 11:34 07/31/2016 Esther San R.N. Medication Administered: DILAUDID [IVP] (HYDROMORPHONE HCL PF), Dose: 0.5 mg IVP over 2 minute(s), Site: #1 left hand. Medication Ordered: Dilaudid IV 0.5 mg (HIGH ALERT MEDICATION, NOW). Start 14:00 07/31/2016 Esther San R.N., Stop 14:30 07/31/2016 Esther San R.N. Medication Administered: INVANZ [IVPB], Dose: 1 gm IVPB over 30 minute(s), Rate: 120 mL/hr, Dispensed: 60 mL bag, Site: #1 left hand. Medication Ordered: Invanz IV 1 gm (NOW). Given 15:40 07/31/2016 Esther San R.N. Medication Administered: DILAUDID [IVP] (HYDROMORPHONE HCL PF), Dose: 0.5 mg IVP over 2 minute(s), Site: #1 left hand. Medication Ordered: Dilaudid IV 0.5 mg (HIGH ALERT MEDICATION, NOW). Given 16:25 07/31/2016 Esther San R.N. Medication Administered: DILAUDID [IVP] (HYDROMORPHONE HCL PF), Dose: 0.5 mg IVP, Site: #1 left hand. Medication Ordered: Dilaudid IV 0.5 mg (HIGH ALERT MEDICATION, NOW).
--- NOTE | 2016-08-05 04:35 | ED MED RECONCILIATION SUMMARY ---
Patient: NGOC MARTINO Medication Reconciliation Report [facility] VisitID: [id number] [address] [place] [address] 61y, F Registration Date/Time: 07/31/2016 Weight: 45.8 kg Height/Length: 65 in. BMI: 16.8 ALLERGIES: No Known Drug Allergy The patient's Home Medications are listed below: THE FOLLOWING MEDICATIONS NEED TO BE RECONCILED: Levothyroxine Sodium Oral (150 mcg) 1 tablet, daily The source(s) of the original Home Medication information: Not obtained. The following Medications were given to the patient in the Emergency Department: IV NS IV Fluids bolus 1000 mL over 1 hour(s), administered: 07/31/2016 11:34:00 AM Dilaudid [IVP] IVP 0.5 mg, administered: 07/31/2016 11:34:00 AM Invanz [IVPB] IVPB bolus 0, then 1 gm 120 mL/hr, administered: 07/31/2016 2:00:00 PM Dilaudid [IVP] IVP 0.5 mg, administered: 07/31/2016 3:40:00 PM Dilaudid [IVP] IVP 0.5 mg, administered: 07/31/2016 4:25:00 PM The following Medications were prescribed to the patient: None.
--- NOTE | 2016-08-05 04:35 | ED DISCHARGE INSTRUCTIONS ---
Patient: NGOC MARTINO General Instructions [facility] VisitID: [id number] [address] [place] [address] 61y, F Registration Date/Time: 07/31/2016 Single deep abscess (intra-abdominal, post-operative). (Electronically signed by Mariaelena De La Cruz MD 08/05/2016 4:35)
--- NOTE | 2016-08-05 04:35 | ED MED RECONCILIATION SUMMARY ---
Patient: NGOC MARTINO Medication Reconciliation Report [facility] VisitID: [id number] [address] [place] [address] 61y, F Registration Date/Time: 07/31/2016 Weight: 45.8 kg Height/Length: 65 in. BMI: 16.8 ALLERGIES: No Known Drug Allergy The patient's Home Medications are listed below: THE FOLLOWING MEDICATIONS NEED TO BE RECONCILED: Levothyroxine Sodium Oral (150 mcg) 1 tablet, daily The source(s) of the original Home Medication information: Not obtained. The following Medications were given to the patient in the Emergency Department: IV NS IV Fluids bolus 1000 mL over 1 hour(s), administered: 07/31/2016 11:34:00 AM Dilaudid [IVP] IVP 0.5 mg, administered: 07/31/2016 11:34:00 AM Invanz [IVPB] IVPB bolus 0, then 1 gm 120 mL/hr, administered: 07/31/2016 2:00:00 PM Dilaudid [IVP] IVP 0.5 mg, administered: 07/31/2016 3:40:00 PM Dilaudid [IVP] IVP 0.5 mg, administered: 07/31/2016 4:25:00 PM The following Medications were prescribed to the patient: None.
--- NOTE | 2016-08-05 04:35 | ED MAR SUMMARY ---
..... Medication Administration Record [facility] [address] [place] [address] Patient: NGOC MARTINO Visit ID: [id number] 61y, F Weight: 45.8 kg Height/Length: 65 in BMI: 16.8 ALLERGIES: No Known Drug Allergy Start 11:34 07/31/2016 Esther San R.N., Stop 13:07 07/31/2016 Esther San R.N. Medication Administered: IV NS (SALINE), Dose: IV Fluids, Bolus: 1000 mL over 1 hour(s), Dispensed: 1000 mL bag, Site: #1 left hand. Medication Ordered: IV NS : initial bolus 1000 mL (1000 mL/hr), then none - (NOW). Given 11:34 07/31/2016 Esther San R.N. Medication Administered: DILAUDID [IVP] (HYDROMORPHONE HCL PF), Dose: 0.5 mg IVP over 2 minute(s), Site: #1 left hand. Medication Ordered: Dilaudid IV 0.5 mg (HIGH ALERT MEDICATION, NOW). Start 14:00 07/31/2016 Esther San R.N., Stop 14:30 07/31/2016 Esther San R.N. Medication Administered: INVANZ [IVPB], Dose: 1 gm IVPB over 30 minute(s), Rate: 120 mL/hr, Dispensed: 60 mL bag, Site: #1 left hand. Medication Ordered: Invanz IV 1 gm (NOW). Given 15:40 07/31/2016 Esther San R.N. Medication Administered: DILAUDID [IVP] (HYDROMORPHONE HCL PF), Dose: 0.5 mg IVP over 2 minute(s), Site: #1 left hand. Medication Ordered: Dilaudid IV 0.5 mg (HIGH ALERT MEDICATION, NOW). Given 16:25 07/31/2016 Esther San R.N. Medication Administered: DILAUDID [IVP] (HYDROMORPHONE HCL PF), Dose: 0.5 mg IVP, Site: #1 left hand. Medication Ordered: Dilaudid IV 0.5 mg (HIGH ALERT MEDICATION, NOW).
[2016-08-05 05:27] VITALS: BP 123/82
--- NOTE | 2016-08-12 19:34 | DISCHARGE SUMMARY ---
ADMIT DATE: 07/31/2016 DISCHARGE DATE: 08/05/2016 DISCHARGE DIAGNOSIS: 1. Intra-abdominal abscess HOSPITAL COURSE: The patient is a 61-year-old woman who presented with abdominal pain and dysuria. She recently had a small-bowel obstruction requiring small bowel resection and had multiple abscess pockets requiring percutaneous drainage. These were all removed about 3 weeks ago, however, some of her symptoms returned. She was taken to CT scan where another abscess cavity was found in close proximity to the bladder. The patient underwent percutaneous drainage by Dr. Hernandez in the CT scanner on 08/01/2016 with an 8- [place] pigtail drain. This obtained 20 mL of purulent material. The patient did well with this drain and was discharged on 08/05/2016 with the drain still in place and with drain care instructions. DISCHARGE INSTRUCTIONS/MEDICATIONS: Plan: The patient will follow up in the clinic and to keep track of her drain outputs. Hopefully, we can remove the drain around 10 days post-placement, with complete resolution of the abscess.
== END 2016-08-05 09:45 | disposition home or self-care (01) | DRG 721 ==
LOC: ED SRH 09:28 → TRANS SRH 14:51 → CC SRH 16:00 → ACUTE2 SRH 16:00 → CC SRH 08-02 12:40 → ACUTE2 SRH 08-03 00:49
PROVIDERS: Radiology Diagnostic Radiology; ADMIT Emergency Medicine
PROC: 0W9G30Z Drainage of Peritoneal Cavity with Drainage Device, Percutaneous Approach (ICD-10-PCS; principal; 2016-08-01 15:30)
DX: T81.4XXA Infection following a procedure, initial encounter (principal); K65.1 Peritoneal abscess; I10 Essential (primary) hypertension; E89.0 Postprocedural hypothyroidism; F17.210 Nicotine dependence, cigarettes, uncomplicated
CPT/HCPCS: 81805; 82445; 82588; 82707; 82735; 90001; 90004; 90074; 90100; 90131; 90155; 90309; 90470; 91004; 91672; 92132; 94060; 95059